=== PATIENT | male | born 1975 | race Caucasian/White ===

== ENCOUNTER 2024-12-04 12:42 | Emergency (ER) | payer OTHER, SELFPAY ==
[2024-12-04] VITALS (17 sets, daily range): BP systolic 128–154; BP diastolic 83–97; PULSE 72–102; RESP 18–20; TEMP 37; O2SAT 95–99
--- NOTE | ~2024-12-04 | CT_ITS ---
EXAMINATION: CT abdomen pelvis wo con DATE: 12/04/2024 13:19 INDICATION: abdominal pain/ low back pain/ diarrhea x3 days TECHNIQUE: Computed tomography (CT) of the abdomen and pelvis was performed without intravenous contr ast. Automated exposure control and iterative reconstruction technique were employed. The dose-length product was 661.31 mGy-cm. COMPARISON: None. FINDINGS: Lower thorax: Unremarkable Liver: Enlarged Biliary/Gallbladder: Gallbladder is normal. No bile duct dilation. Pancreas: No mass or duct dilation. Spleen: Normal. Adrenals:No mass. Kidneys: No suspicious mass, obstructing stone, or hydronephrosis. GI tract: No small or large bowel dilation. Diffuse colonic wall thickening with mild surrounding inf lammatory change, some sparing of the distal sigmoid and rectum. Normal appendix. Mesentery/Peritoneum: No ascites, mass, or free air. Retroperitoneum: No mass. Pelvis: Pelvic organs are within normal limits. Soft Tissues: Soft tissues and body wall unremarkable. Bones: No acute osseous finding. IMPRESSION: Hepatomegaly. Diffuse infectious, inflammatory, or ischemic colitis. Reviewed, dictated and finalized at location K.
--- OUTSIDE RECORDS SUMMARY | 2024-12-04 12:45 | XMS_ITS | Clinical Summary ---
Author Organization [facility] Address [address] [facility], [place] [address] Phone Care Team Providers Care Nursing Home Manager Name Role Phone Aristeo Bonilla APRN, [employer] LO[employer]IVER Primary Care Pro vider Allergies No known active allergies Medications citalopram (CELEXA) 10 MG Tablet Take 10 mg by mouth daily. Active doxycycline hyclate (VIBRAMYCIN) 100 MG Capsule Take 100 mg by mouth 2 times daily. Active midodrine (PROAMATINE) 5 MG Tablet Take 5 mg by mouth 2 times daily. Active Metoprolol Succinate (TOPROL XL PO) Take 50 mg by mouth. Active Family History Medical History Relation Name Comments Hypertension Mother Other-comment Mother depressive dis order Stroke Mother Relation Name Status Comments Mother Social History Tobacco Use Types Packs/Day Years Used Date Smoking Tobacco: Former Smokeless Tobacco: Never Alcohol Use Standard Drinks/Week Comments Yes 0 (1 standard drink = 0.6 oz pur e alcohol) rarely Sex and Gender Information Value Date Recorded Sex Assigned at Not on file Legal Sex Male 7:40 PM CDT Gender Identity Not on file Sexual Orientation Not on file Last Filed Vital Signs Vital Sign Reading Time Taken Comments Blood Pressure 120/86 05/25/2018 10:29 AM CDT Pulse 46 05/25/2018 10:29 AM CDT Temperature 36.3 C (97.3 F) 05/25/2018 10:29 AM CDT Respiratory Rate 16 05/25/2018 10:29 AM CDT Oxygen Saturation 98% 05/25/2018 10:29 AM CDT Inhaled Oxygen Concentration - - Weight 112 kg (247 lb) 05/25/2018 10:29 AM CDT Height 188 cm (6' 2 ) 05/25/2018 10:29 AM CDT Body Mass Index 31.71 05/25/2018 10:29 AM CDT Plan of Treatment Health Maintenance Due Date Last Done Comments Hepatitis C Virus (HCV) Screening 1974 TdaP Immunization 1974 Hepatitis B Immunization (1 of 3 - 19+ 3-dose series) 1993 Colonoscopy 2019 Colorectal Cancer Screening 2019 Cologuard 01/15/2024 Immunochemical Fecal Occult Blood 01/15/2024 Pneumococcal Immunization (5 0+ years) (1 of 1 - PCV) 01/15/2024 Zoster Immunization (1 of 2) 01/15/2024 Influenza Immunization (#1) 2024 SARS-COV-2 Immunization (3 - 2023- season) 2024 12/26/2020, 12/05/2020 Respiratory Syncytial Virus (RSV) Immunization (Adult) (1 - 1-dose 75+ series) 2049 Meningococcal Immunization (ACWY) Aged Out No longer eligible b ased on patient's age to complete this topic Rotavirus Immunization Aged Out No lo nger eligible based on patient's age to complete this topic Insurance [facility] [place] [address] Care Teams Nursing Home Manager Relationship Specialty Start Date End Date Aristeo Bonilla APRN, COMM[employer]CIAL [employer] 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
--- OUTSIDE RECORDS SUMMARY | 2024-12-04 12:45 | XMS_ITS | Referral Summary ---
Author Organization [facility] Address [address] [place] [address] Care Team Providers Care [employer] Consultant Name Role Phone Yessica Rogers MD Unavailable [phone] Varun Alicia DO Unavailable Mitch Liao Primary Care Provider Encounters Date Type Department Care Team Description 11/07/2024 11:00 AM CDT Office Visit [facility] at [address] [place] [phone] Susu Anderson NP Incisional infection (Primary Dx) 10/07/2024 8:15 AM PROTEIN SCIENTIST Office Visit [facility] at [address] [phone] Yessica Rogers MD Elevated LDL cholesterol level (Primary Dx); Syncope and collapse 10/04/2024 9:00 AM PROTEIN SCIENTIST - 10/04/2024 10:35 AM PROTEIN SCIENTIST Surgery [facility]iac [facility]atheter[facility] [address] [place] [phone] Yessica Rogers MD IMPLANTABLE CARDIAC EVENT MONITOR REMOVAL [id number] 10/04/2024 7:40 AM PROTEIN SCIENTIST - 10/04/2024 11:07 AM PROTEIN SCIENTIST Hospital Encounter [facility]iac [facility]atheter[facility] [address] [place] [phone] Yessica Rogers MD Encounter for interrogation of cardiac recorder Discharge Disposition: Discharge to home or self care 09/27/2024 Results Follow-Up [facility] at [address] [phone] Yessica Rogers MD 09/27/2024 Results Follow-Up [facility] at [address] [phone] Yessica Rogers MD 09/27/2024 10:00 AM PROTEIN SCIENTIST Lab [address] [phone] Encounter for interrogation of cardiac recorder 09/27/2024 8:27 AM PROTEIN SCIENTIST - 09/27/2024 11:59 PM PROTEIN SCIENTIST Hospital Encounter [facility]iology [address] [place] [phone] Encounter for interrogation of cardiac recorder Discharge Disposition: Discharge to home or self care 09/27/2024 7:41 AM PROTEIN SCIENTIST - 09/27/2024 11:59 PM PROTEIN SCIENTIST Hospital Encounter [address] [address] Discharge Disposition: Discharge to home or self care 09/27/2024 7:41 AM PROTEIN SCIENTIST - 09/27/2024 11:59 PM PROTEIN SCIENTIST Hospital Encounter [facility] [address] [place] [phone] Coronary artery disease involving tyonek coronary artery of [place] heart without angina pectoris Discharge Disposition: Discharge to home or self care 09/27/2024 7:40 AM PROTEIN SCIENTIST - 09/27/2024 11:59 PM PROTEIN SCIENTIST Hospital Encounter [facility] [address] [place] [phone] Discharge Disposition: Discharge to home or self care 09/27/2024 7:40 AM PROTEIN SCIENTIST - 09/27/2024 11:59 PM PROTEIN SCIENTIST Hospital Encounter [address] [address] Coronary artery disease involving [place] coronary artery of [place] heart without angina pectoris Discharge Disposition: Discharge to home or self care 09/13/2024 9:00 AM PROTEIN SCIENTIST Office Visit [facility] at [address] [place] [phone] Yessica Rogers MD Elevated LDL cholesterol level (Primary Dx); Syncope and collapse; Paroxysmal SVT (supraventricular tachycardia) (CMS/HCC) (HCC); Coronary artery disease involving tyonek coronary artery of ty[place] heart without angina pectoris from Last 3 Months Allergies No known active allergies Medications buPROPion XL (WELLBUTRIN XL) 300 mg 24 hr tablet Take 450 mg by mouth 08/08/19 20 Active busPIRone (BUSPAR) 7.5 mg tabletIndications: Generalized Anxiety Disorder Take 1 tablet (7.5 mg total) by mouth 2 (two) times a day Active LORazepam (ATIVAN) 1 mg tablet Take 1 tablet (1 mg total) by mouth every 6 (six) hours as needed for anxiety Active risperiDONE (RisperDAL) 0.5 mg tablet Take 1 tablet (0.5 mg total) by mouth nightly 12/31/19 23 Active aspirin 81 mg enteric coated tablet Take 1 tablet (81 mg total) by mouth daily 30 tablet 11 01/22/20 23 Active Additional Information Patient not taking.Reported on 09/13/2024 metoprolol XL (TOPROL-XL) 50 mg extended release tablet Take 1 tablet (50 mg total) by mouth daily Active rizatriptan TRUCK DRIVER RUBBISH COLLECTOR (MAXALT-TRUCK DRIVER RUBBISH COLLECTOR) 10 mg disintegrating tabletIndications: Migraine Take 1 tablet (10 mg total) by mouth every 2 (two) hours as needed for migraine May repeat in 2 hours if unresolved. Do not exceed 30 mg in 24 hours. 9 tablet 3 08/07/19 24 Active Additional Information Patient not taking.Reported on 09/13/2024 atorvastatin (LIPITOR) 40 mg tablet Take 1 tablet (40 mg total) by mouth daily 90 tablet 3 09/13/19 25 026 Active traZODone (DESYREL) 50 mg tablet Take 1 tablet (50 mg total) by mouth nightly Active cephalexin (KEFLEX) 500 mg capsule Take 1 capsule (500 mg total) by mouth 3 (three) times a day for 7 days 21 capsule 11/08/19 25 025 Active Problems Problem Noted Date Diagnosed Date Encounter for interrogation of cardiac recorder 09/14/2024 Elevated LDL cholesterol level 02/20/2023 Overview (10/07/2024): LDL of 116 mg/dL on 18 January 2023. LDL of 149 mg/dL on 19 August 2024. He was on Lipitor 20 mg daily in August 2024 but not taking it regularly. Now taking Lipitor 40 mg daily. Assessment & Plan (10/07/2024 8:59 AM PROTEIN SCIENTIST): We discussed LDL cholesterol goal less than 70 mg/dL. Patient agreeable to getting another fasting lipid/liver panel in about a month. I expect his LDL to be much lower at that time. Assessment & Plan (09/13/2024 9:23 AM PROTEIN SCIENTIST): Discussed LDL cholesterol goal of less than 70 mg/dL. He has not been at goal on the last 2 tests that I could see. In fact, the LDL cholesterol worsened from 2022. I will restart Lipitor at 40 mg daily. Another lipid/liver panel in 6-8 weeks. Assessment & Plan (02/26/2023 2:32 PM CDT): We discussed LDL cholesterol goal of less than 70 mg/dL. We discussed adding Zetia or doubling up the Lipitor--he wants to go to maximum dose of Lipitor. Another fasting lipid/liver panel in 6-8 weeks. Coronary artery disease invo lving tyonek coronary artery of [place] heart 01/24/2020 Overview (09/27/2024): Mild by catheterization on 12 January 2014 (RL) with 25% ostial left main stenosis, 25% diffuse proximal RCA stenosis and 25% mid to distal LAD stenosis. Normal Cardiolite on 27 September 2024. LVEF of 63%. Assessment & Plan (09/13/2024 9:21 AM PROTEIN SCIENTIST): We discussed cardiac catheterization result 10 years ago. He does not have any classic angina or shortness of breath lately. We discussed getting a stress test and he is agreeable to a walking nuclear test. Assessment & Plan (02/26/2023 2:33 PM CDT): Having rare episodes of angina with exertion. We discussed cardiac catheterization findings from 9 years ago with currently elevated LDL cholesterol level. A walking stress nuclear would be good to make sure he does not have any ongoing ischemia. Course, his fatigue could also be from obstructive sleep apnea, he will be seeing Dr. Cabrera soon. Assessment & Plan (08/28/2022 3:03 PM PROTEIN SCIENTIST): We discussed cardiac catheterization findings from 8 years ago. Patient denies any chest pain or shortness of breath with exertion. No change in medical regimen here. Assessment & Plan (08/22/2021 3:37 PM PROTEIN SCIENTIST): Patient denies any chest pain or shortness of breath with exertion. No change in medical regimen here. Assessment & Plan (01/24/2020 10:26 AM CDT): Stable with no recent angina. Paroxysmal SVT (supraventricular tachycardia) (C MS/HCC) 01/18/2020 Overview (08/28/2022): Episodes with sudden rate drops noted on loop recorder interrogation. However, patient apparently not symptomatic. Multiple episodes of high ventricular rates noted over the past few years. Symptomatic palpitations in March 2022 was not associated with anything on the loop recorder interrogation. Assessment & Plan (09/13/2024 9:21 AM PROTEIN SCIENTIST): No recent palpitations, dizziness or syncope. loop recorder will be removed soon. Assessment & Plan (08/28/2022 3:03 PM PROTEIN SCIENTIST): Patient has done quite well. We discussed an EP evaluation to see if he could benefit from an ablation. He is agreeable to see Dr. Pulido at [facility] for a new patient visit. No change in Toprol-XL dose at this time. He never filled his ivabradine prescription. Assessment & Plan (08/22/2021 3:38 PM PROTEIN SCIENTIST): Multiple episodes of heart rate to the 180s noted. Already had a negative EP study with Dr. Hayden in January 2018. I will have him see Dr. Swartz now to see if there is anything else we need to do. In the meantime, I will put him back on Toprol XL 50 mg daily and Corlanor 5 mg daily. He was on those medications but could not fill them because of insurance change recently. Assessment & Plan (01/24/2020 10:22 AM CDT): We discussed that loop recorder checked today again showed rate drops and also rapid heart rates in the afternoon/evening. He would not be doing anything strenuous at that time. I discussed the findings with Dr. Hayden over the phone. He again recommended Corlanor at 5 mg p.o. b.i.d.. This was ordered last time but patient never got it started. Will try again today with a co-pay card. Drug has not been sampled for a while now. Occipital neuralgia of left side 09/02/2019 Chronic migraine without aur a without status migrainosus, not intractable 10/12/2018 Obstructive sleep apnea 10/12/2018 Syncope and collapse 08/06/2017 Overview (10/07/2024): Status post [employer] Biomonitor 2 AF on 07 August [address]. [address] Hayden for tilt-table study in 2017 and it was abnormal at that time. Device hit TOMMY in November 2023. Loop recorder was removed on 04 October 2024 (RL). Assessment & Plan (10/07/2024 8:58 AM PROTEIN SCIENTIST): No problems since loop recorder removed. Assessment & Plan (09/13/2024 9:20 AM PROTEIN SCIENTIST): He has not had any syncope for several years. No recent palpitations. Since loop recorder is , he wants to have it removed in the next week or two. He was wondering whether he needs another loop recorder. Probably not as he is not having any symptoms lately. Loop recorder site looks fine Assessment & Plan (02/26/2023 2:34 PM CDT): Had syncopal episode last month and nothing showed up on the loop recorder interrogation. However, 4 days prior to the syncopal episode, he had a 4 second pause while sleeping. Apparently, he snores and he has not had sleep study. Will be seeing the sleep doctor very soon. Assessment & Plan (01/24/2020 10:23 AM CDT): No recent syncope. No palpitations or dizziness. He has not pressed his loop recorder for a while and I advised him to do so if he starts to have symptoms again in the near future. Assessment & Plan (08/06/2017 5:30 PM PROTEIN SCIENTIST): This is a recurrent problem for the patient happening 5th time. Prior workup was negative. Patient had CardioNet monitor for 17 days, did not show any arrhythmias. Dr. lynn is her recommending loop recorder and he spoke to Dr. Drew elizabeth at [facility] for possible EP study. Orthostatic blood pressures are pending. All the workup is still negative, EKG does not show any tachyarrhythmia, Brugada syndrome or WPW syndrome. Telemetry monitoring showing sinus rhythm. Neurology consultation obtained. Recommending EEG and loop recorder. Pain in right hand 08/06/2017 Assessment & Plan (08/06/2017 5:34 PM PROTEIN SCIENTIST): This is secondary to a fall due to syncope. X-ray of right hand shows old fracture at navicular bone. No new fractures or dislocation. Will continue pain medications. Left shoulder pain 08/06/2017 Assessment & Plan (08/06/2017 5:48 PM PROTEIN SCIENTIST): This is due to a fall. X-rays show no fracture or dislocation. Will continue pain medication Orthostatic hypotension 08/06/2017 Assessment & Plan (08/06/2017 5:49 PM PROTEIN SCIENTIST): Continue IV fluid and check orthostatic blood pressures tomorrow. Contusion of left hip Contusion of left shoulder Contusion of right hand Immunizations Immunization Administration Dates Next Due Influenza, Quadrivalent, Spl it, Preservative Free, Intramuscular 08/07/2017 Social History Tobacco Use Types Packs/Day Years Used Date Smoking Tobacco: Former Smokeless Tobacco: Never Tobacco Cessation:Counseling Given: No Alcohol Use Standard Drinks/Week Comments Yes 0 (1 standard drink = 0.6 oz pur e alcohol) twice monthly Social Connection and Isolat ion Panel [NHANES] Answer Date Recorded In a typical week, how many times do you talk on the phone with family, friends, or neighbors? More than three times a week 01/16/2023 How often do you get togethe r with friends or relatives? Never 01/16/2023 How often do you attend chur ch or rastafari services? Never 01/16/2023 Do you belong to any clubs o r organizations such as religion groups, unions, fraternal or athletic groups, or school groups? No 01/16/2023 How often do you attend meet ings of the clubs or organizations you belong to? Never 01/16/2023 Are you , , di vorced, , never , or living with a partner? 01/16/2023 AUDIT-C Answer Date Recorded Q1: How often do you have a drink containing alc ohol? Monthly or less 01/15/2023 Q2: How many drinks containi ng alcohol do you have on a typical day when you are drinking? 1 or 2 01/15/2023 Q3: How often do you have si x or more drinks on one occasion? Never 01/15/2023 Overall Financial Resource Strain (CARDIA) Answe r Date Recorded How hard is it for you to pa y for the very basics like food, housing, medical care, and heating? Not hard at all 01/16/2023 Hunger Vital Sign Answer Date Recorded Within the past 12 months, y ou worried that your food would run out before you got the money to buy more. Never true 01/17/20 23 Within the past 12 months, t he food you bought just didn't last and you didn't have money to get more. Never true 01/16/2023 PRAPARE - Transportation Answer Date Re corded In the past 12 months, has l ack of transportation kept you from medical appointments or from getting medications? No 01/01 In the past 12 months, has l ack of transportation kept you from meetings, work, or from getting things needed for daily living? No 01/16/2023 Housing Stability Vital Sign Answer Esau e Recorded In the last 12 months, was t here a time when you were not able to pay the mortgage or rent on time? No 01/16/2023 In the last 12 months, how many places have you lived? 1 01/16/2023 In the last 12 months, was t here a time when you did not have a steady place to sleep or slept in a correction (including now)? No 01/16/2023 Personal Safety Answer Date Recorded Have you ever been in or are you currently in a harmful physical or emotional relationship or is someone making you feel afraid or unsafe? Denies 10/04/2024 Education Answer Date Recorded What is the highest level of school you have completed or the highest degree you have received? GED or equivalent Sex and Gender Information Value Date Recorded Sex Assigned at Not on file Legal Sex Male 1:47 AM PROTEIN SCIENTIST Gender Identity Male 08/20/2021 9:51 AM PROTEIN SCIENTIST Sexual Orientation Straight 08/20/2021 9: 51 AM PROTEIN SCIENTIST Last Filed Vital Signs Vital Sign Reading Time Taken Comments Blood Pressure 115/79 10/04/2024 11:00 AM PROTEIN SCIENTIST Pulse 55 10/04/2024 11:00 AM PROTEIN SCIENTIST Temperature 36.5 C (97.7 F) 10/04/2024 8:04 AM PROTEIN SCIENTIST Respiratory Rate 12 10/04/2024 11:0 0 AM PROTEIN SCIENTIST Oxygen Saturation 98% 10/04/2024 11: 00 AM PROTEIN SCIENTIST Inhaled Oxygen Concentration - - Weight 114.4 kg (252 lb 1.6 oz) 10/04/2024 8:05 AM PROTEIN SCIENTIST Height 182.9 cm (6') 09/13/2024 9:03 AM PROTEIN SCIENTIST Body Mass Index 34.19 09/13/2024 9:03 AM PROTEIN SCIENTIST Plan of Treatment Not on file Medical Devices Implanted Type Area Certified Flex Endoscope Reprocessor Device Identifier Shelf Expiration Date Model / Serial / Lot Device Cardiac Biomonitor Implantable Sterile Latex Free - [id number] Implanted:Qty: 1 on 08/07/2017 by Yessica Rogers MD at [facility] [employer] 09/02/2017 [id number] / / Procedures Procedure Name Priority Date/Time Associated Diagnosis Comments LOOP RECORDER REMOVAL Routine 10/04/2024 9:57 AM PROTEIN SCIENTIST Encounter for interrogation of cardiac recorder STRESS TEST FOR DUAL READ Schedule Routine, Read Routine (OP Routine) 09/27/2024 10:26 AM PROTEIN SCIENTIST Coronary artery disease involving [place] coronary artery of [place] heart without angina pectoris NM MPI SPECT (REST AND/OR STRESS) MULTIPLE STUDIES Schedule Routine, Read Routine (OP Routine) 09/27/2024 10:26 AM PROTEIN SCIENTIST Coronary artery disease involving [place] coronary artery of [place] heart without angina pectoris EGFR Routine 09/27/2024 9:55 AM PROTEIN SCIENTIST Encounter for interrogation of cardiac recorder DIFFERENTIAL AUTO Routine 09/27/2024 9:5 5 AM PROTEIN SCIENTIST Encounter for interrogation of cardiac recorder PROTIME-INR Routine 09/27/2024 9:55 AM PROTEIN SCIENTIST Encounter for interrogation of cardiac recorder BASIC METABOLIC PANEL Routine 09/27/2024 9:55 AM PROTEIN SCIENTIST Encounter for interrogation of cardiac recorder CBC WITH AUTO DIFFERENTIAL Routine 09/27/2024 9:55 AM PROTEIN SCIENTIST Encounter for interrogation of cardiac recorder ECG 12-LEAD Routine 09/27/2024 8:48 AM PROTEIN SCIENTIST Encounter for interrogation of cardiac recorder from Last 3 Months Results * LOOP RECORDER REMOVAL (10/04/2024 9:57 AM PROTEIN SCIENTIST) Anatomical Region Laterality Modality X-Ray Angiograph y 10/04/2024 Narrative 10/07/2024 10:40 AM PROTEIN SCIENTIST [employer] Job ID: [id number] [employer] Document ID: [id number] Dictated date/time: [id number] NAME OF CARDIAC PROCEDURE Removal of loop recorder. PROCEDURE The patient was brought down to the lab support tech where a time-out was done just prior to the procedure. The patient wanted some sedation and Alexsander RN gave 4 mg IV Versed and 200 mcg of IV fentanyl in small increments. Total procedure time was 15 minutes. The chest was prepped and draped in the usual fashion. The butt end of the device was right underneath the old scar. Thus, I infiltrated the old scar. Using a knife blade, I went inside through the subcutaneous tissue. The device was then removed in its entirety using a hemostat. Not much bleeding. Subcutaneous tissues were approximated with 3 stitches of 2-0 Vicryl. The skin was approximated nicely with Steri-Strips. This was then followed by a dry sterile dressing. The patient will go home today when he is fully awake. No driving today. Wound check in my office next week. Job ID/Internal Job ID: [id number] us Yessica Rogers MD CV ELECTROPHYSIOLOGY PROCS Fi nal Result * NM MPI SPECT (Rest and/or Stress) Multiple Studies (09/27/2024 10:26 AM PROTEIN SCIENTIST) Anatomical Region Laterality Modality Body N/A Nuclear Medicine 09/27/2024 7:47 AM PROTEIN SCIENTIST Narrative 09/27/2024 11:47 AM PROTEIN SCIENTIST [address] [id number] MPI Report Patient Name: JOSE MALAVE Nilesh : 1975 Study Date: 09/27/2024 7:47:03 AM Gender: M Tech: Ref Provider: YESSICA ROGERS Height(Cm): BSA: Weight(Kg): Order Provider: YESSICA ROGERS PROCEDURES: Exercise SPECT Report.: Myocardial Perfusion Imaging at rest and post exercise. INDICATIONS: I25.10 Atherosclerotic heart disease of [place] coronary artery without angina pectoris. FINDINGS: Procedure Data: Sestamibi injected at rest was 10.4 millicuries Sestamibi injected at peak exercise was 31.8 millicuries Peak HR: 157 bpm Predicted Maximal HR 170 bpm Percent Max Predicted HR Achieved: 92.35 % Perfusion: Normal perfusion imaging. LV Function: Left ventricular ejection fraction is 63 %. CONCLUSIONS: 1. Myocardial Perfusion: Normal rest and stress images. 2. Left ventricle: Normal size and systolic function (visually confirmed EF >50%). Electronically Signed By: Shelby Oconnell MD 09/27/2024 11:00:11 AM PROTEIN SCIENTIST Procedure Note Shelby Oconnell MD - 09/27/[address] [address] MPI Report Patient Name: JOSE MALAVE D : 1975 Study Date: 09/27/2024 7:47:03 AM Gender: M Tech: Ref Provider: YESSICA ROGERS Height(Cm): BSA: Weight(Kg): Order Provider: YESSICA ROGERS PROCEDURES: Exercise SPECT Report.: Myocardial Perfusion Imaging at rest and post exercise. INDICATIONS: I25.10 Atherosclerotic heart disease of [place] coronary artery withoutangina pectoris. FINDINGS: Procedure Data: Sestamibi injected at rest was 10.4 millicuries Sestamibi injected at peak exercise was 31.8 millicuries Peak HR: 157 bpm Predicted Maximal HR 170 bpm Percent Max Predicted HR Achieved: 92.35 % Perfusion: Normal perfusion imaging. LV Function: Left ventricular ejection fraction is 63 %. CONCLUSIONS: 1. Myocardial Perfusion: Normal rest and stress images. 2. Left ventricle: Normal size and systolic function (visually confirmedEF >50%). Electronically Signed By: Shelby Oconnell MD 09/27/2024 11:00:11 AM PROTEIN SCIENTIST us Yessica Rogers MD IM NM PROCEDURES Final Resul t * Stress Test for Myocardial Perfusion (09/27/2024 10:26 AM PROTEIN SCIENTIST) Anatomical Region Laterality Modality Nuclear Medicine 09/27/2024 8:30 AM PROTEIN SCIENTIST Narrative 09/27/2024 1:30 PM PROTEIN SCIENTIST [address] [address] MPI ECG Report Patient Name: JOSE MALAVE D : 1975 Study Date: 09/27/2024 8:30:00 AM Gender: M Tech: jose Suárez Provider: YESSICA ROGERS Height(Cm): 183 BSA: 3.57 Weight(Kg): 251 Heart Rate: 145 Order Provider: YESSICA ROGERS PROCEDURES: Exercise SPECT Report.: Myocardial Perfusion Imaging at rest and post exercise. INDICATIONS: I25.10 Atherosclerotic heart disease of [place] coronary artery without angina pectoris. FINDINGS: Procedure Data: Exercise Time: 10:00 Resting HR 79 bpm Peak HR: 157 bpm Predicted Maximal HR 170 bpm Target HR: 145 bpm Percent Max Predicted HR Achieved: 92 % METS achieved: 10.3 Rate-Pressure Product: 34728 BPM*mmHg Medications: Medications None, aspirin, bumex, capoten, cardura, carvedilol (Coreg), clonidine, coumadin, cozaar, digoxin, diltiazem, diovan, hydrochlorothiazide, hytrin, isordil, lasix, lipitor, metoprolol, multaq, niacin, norvasc, potassium, pravachol, procardia, propanolol, rythmol, simvastatin, toprol, trandate, vasotec, verapamil, zaroxolyn, zocor and free text. Performed By: Supervising Physician: The Supervising Physician is raad ochoa. Reason for Termination: Fatigue. Dyspnea. THR achieved. Patient request. Hypertensive response. Resting ECG: Normal sinus rhythm. Post ECG: No diagnostic ST changes. Arrhythmia: No arrhythmias seen. Target HR Achieved: Target heart rate was achieved. CONCLUSIONS: 1. Test negative for exercise-induced ischemia electrocardiogram criteria at maximum workload. The. 2. No chest discomfort. 3. Normal blood pressure response. 4. Excellent aerobic exercise capacity with more than 12 Mets of exercise activity. 5. SPECT report to follow and should be correlated with this study. Electronically Signed By: Shelby Oconnell MD 09/27/2024 12:54:58 PM PROTEIN SCIENTIST Procedure Note Shelby Oconnell MD - 09/27/[address] [address] MPI ECG Report Patient Name: JOSE MALAVE D : 1975 Study Date: 09/27/2024 8:30:00 AM Gender: M Tech: jose Suárez Provider: YESSICA ROGERS Height(Cm): 183 BSA: 3.57 Weight(Kg): 251 Heart Rate: 145 Order Provider: YESSICA ROGERS PROCEDURES: Exercise SPECT Report.: Myocardial Perfusion Imaging at rest and post exercise. INDICATIONS: I25.10 Atherosclerotic heart disease of [place] coronary artery withoutangina pectoris. FINDINGS: Procedure Data: Exercise Time: 10:00 Resting HR 79 bpm Peak HR: 157 bpm Predicted Maximal HR 170 bpm Target HR: 145 bpm Percent Max Predicted HR Achieved: 92 % METS achieved: 10.3 Rate-Pressure Product: 56929 BPM*mmHg Medications: Medications None, aspirin, bumex, capoten, cardura, carvedilol (Coreg),clonidine, coumadin, cozaar, digoxin, diltiazem, diovan, hydrochlorothiazide, hytrin,isordil, lasix, lipitor, metoprolol, multaq, niacin, norvasc, potassium, pravachol,procardia, propanolol, rythmol, simvastatin, toprol, trandate, vasotec, verapamil,zaroxolyn, zocor and free text. Performed By: Supervising Physician: The Supervising Physician is raad ochoa. Reason for Termination: Fatigue. Dyspnea. THR achieved. Patient request. Hypertensive response. Resting ECG: Normal sinus rhythm. Post ECG: No diagnostic ST changes. Arrhythmia: No arrhythmias seen. Target HR Achieved: Target heart rate was achieved. CONCLUSIONS: 1. Test negative for exercise-induced ischemia electrocardiogram criteriaat maximum workload. The. 2. No chest discomfort. 3. Normal blood pressure response. 4. Excellent aerobic exercise capacity with more than 12 Mets of exerciseactivity. 5. SPECT report to follow and should be correlated with this study. Electronically Signed By: Shelby Oconnell MD 09/27/2024 12:54:58 PM PROTEIN SCIENTIST us Yessica Rogers MD CV STRESS PROCEDURES Final Re sult * eGFR (09/27/2024 9:55 AM PROTEIN SCIENTIST) eGFR 80 >=60 mL/min/1. 73 m2 Comment: Interpretive Data Reference Interval Normal >/= 90 mL/min/1.73m2 Mildly decreased* 60 - 89 mL/min/1.73m2 Mildly to moderately decreased 45 - 59 mL/min/1.73m2 Moderately to severely decreased 30 - 44 mL/min/1.73m2 Severely decreased 15 - 29 mL/min/1.73m2 Kidney Failure < 15 mL/min/1.73m2 *Relative to young adult level Estimated glomerular filtration rate is determined by the 2020 CKD-EPI equation recommended by the National Kidney Foundation (A Unifying Approach to GFR Estimation: Recommendations of the NKF-ASK Task Force on Reassessing the Inclusion of Race in Diagnosing Kidney Disease, JASN 2020). The CKD-EPI equation should not be used for patients with unstable renal function and has not been validated in children and those over 70. Current interpretive data was last reviewed 2021. Blood 09/27/2024 9:55 AM PROTEIN SCIENTIST 09/27/2024 10:44 AM PROTEIN SCIENTIST us Yessica Rogers MD LAB BLOOD ORDERABLES Final Re sult [facility] ([place]) [address] [facility] [place] [address] * Differential, auto (09/27/2024 9:55 AM PROTEIN SCIENTIST) Neutrophil abs 3.3 1.5 - 6.5 K/cumm Imm gran abs 0.0 0.0 - 0.1 K/cumm [facility] ([place]) Lymphocyte abs 3.0 0.8 - 3.3 K/cumm [facility] ([place]) Monocyte abs 0.4 0.2 - 0.8 K/cumm [facility] ([place]) Eosinophil abs 0.2 0.0 - 0.5 K/cumm [facility] ([place]) Basophil abs 0.0 0.0 - 0.1 K/cumm [facility] ([place]) Neutrophil pct 47.6 % [facility] ([place]) Comment: Interpretive Data Percent cell count reference ranges are not reported, since discordance with absolute values may lead to misinterpretation of CBC data. Current Interpretive Data was last revised on 2017. Imm gran pct 0.1 % [facility] ([place]) Comment: Interpretive Data Percent cell count reference ranges are not reported, since discordance with absolute values may lead to misinterpretation of CBC data. Current Interpretive Data was last revised on 2017. Lymphocyte pct 42.6 % [facility] ([place]) Comment: Interpretive Data Percent cell count reference ranges are not reported, since discordance with absolute values may lead to misinterpretation of CBC data. Current Interpretive Data was last revised on 2017. Monocyte pct 6.3 % [facility] ([place]) Comment: Interpretive Data Percent cell count reference ranges are not reported, since discordance with absolute values may lead to misinterpretation of CBC data. Current Interpretive Data was last revised on 2017. Eosinophil pct 3.0 % [facility] ([place]) Comment: Interpretive Data Percent cell count reference ranges are not reported, since discordance with absolute values may lead to misinterpretation of CBC data. Current Interpretive Data was last revised on 2017. Basophil pct 0.4 % [facility] ([place]) Comment: Interpretive Data Percent cell count reference ranges are not reported, since discordance with absolute values may lead to misinterpretation of CBC data. Current Interpretive Data was last revised on 2017. Blood 09/27/2024 9:55 AM PROTEIN SCIENTIST 09/27/2024 10:44 AM PROTEIN SCIENTIST us Yessica Rogers MD LAB BLOOD ORDERABLES Final Re sult [facility] ([place]) [address] [facility] Department [place] [address] * CBC with auto differential (09/27/2024 9:55 AM PROTEIN SCIENTIST) WBC 6.9 3.8 - 9.9 K/cumm Hgb 15.5 13.0 - 17.5 g/dL [facility] ([place]) Hct 46.0 38.9 - 50.3 % [facility] ([place]) Plt 222 150 - 400 K/cumm [facility] ([place]) MPV 10.5 9.1 - 12.3 fL [facility] ([place]) RBC 5.18 4.30 - 5.80 M/cumm [facility] ([place]) MCV 88.8 81.3 - 96.4 fL [facility] ([place]) MCH 29.9 27.1 - 33.3 pg [facility] ([place]) MCHC 33.7 32.3 - 35.7 g/dL [facility] ([place]) RDW CV 12.1 11.1 - 14.9 % [facility] ([place]) RDW SD 39.7 35.7 - 48.1 fL [facility] ([place]) NRBC abs 0.00 0.00 - 0.01 K/cumm [facility] ([place]) Blood 09/27/2024 9:55 AM PROTEIN SCIENTIST 09/27/2024 10:44 AM PROTEIN SCIENTIST Yessica Rogers MD LAB BLOOD ORDERABLES Final Re sult Performing Organization Address [place] de Phone Number [facility] ([place]) [address] [facility] [place] [address] * Protime-INR (09/27/2024 9:55 AM PROTEIN SCIENTIST) PT 11.7 9.7 - 13.0 sec [facility] ([place]) INR 1.08 0.90 - 1.20 [facility] ([place]) Comment: Interpretive data Oral anticoagulant therapeutic ranges: Venous thromboembolism prophylaxis or treatment: 2.0-3.0 CARDIOLOGY Standard range: 2.0-3.0 High-intensity range: 2.5-3.5 Refer to indication-specific guidelines for appropriate target ranges for prosthetic heart valve replacement. Current interpretive data was last revised on 2019. Blood 09/27/2024 9:55 AM PROTEIN SCIENTIST 09/27/2024 10:44 AM PROTEIN SCIENTIST Yessica Rogers MD LAB BLOOD ORDERABLES Final Re sult Performing Organization Address [facility] Co de Phone Number [facility] ([place]) 1 [facility] [place] [address] * Basic metabolic panel (09/27/2024 9:55 AM PROTEIN SCIENTIST) Sodium 143 135 - 145 mmol/L Potassium, pl 4.1 3.3 - 4.9 mmol/L [facility] ([place]) Chloride 107 97 - 110 mmol/L [facility] ([place] CO2 27 22 - 32 mmol/L [facility] ([place]) Anion gap 9 2 - 15 mmol/L [facility] ([place]) BUN 10 6 - 25 mg/dL [facility] ([place]) Creatinine 1.12 0.80 - 1.30 mg/dL [facility] ([place]) Glucose 118 70 - 199 mg/dL [facility] ([place]) Comment: Interpretive Data Fasting glucose >/= 126 mg/dl is diagnostic for diabetes. Fasting is defined as no caloric intake for at least 8 hours. Fasting glucose between 100 mg/dl to 125 mg/dl is diagnostic of prediabetes. In a patient with classic symptoms of hyperglycemia or hyperglycemic crisis, a random glucose >/= 200 mg/dl is diagnostic for diabetes. In the absence of unequivocal hyperglycemia, results should be confirmed by repeat testing. The classification and Diagnosis of Diabetes Diabetes Care 2021; 46: S19-S40. Current interpretive data was last revised 2022. Calcium 9.3 8.5 - 10.3 mg/dL [facility] ([place]) Blood 09/27/2024 9:55 AM PROTEIN SCIENTIST 09/27/2024 10:44 AM PROTEIN SCIENTIST us Yessica Rogers MD LAB BLOOD ORDERABLES Final Re sult Performing Organization Address [facility] Co de Phone Number [facility] ([place]) [address] [facility] [place] [address] * ECG 12 lead (09/27/2024 8:48 AM PROTEIN SCIENTIST) 09/27/2024 8:52 AM PROTEIN SCIENTIST Narrative [facility] - 09/27/2024 9:30 AM PROTEIN SCIENTIST Vent Rate: 57 bpm RR Interval: 1045 msec [place] Interval: 155 msec QRS Duration: 101 msec QT Interval: 408 msec QTC Interval: 402 msec P-R-T Eleva: 72 - 27 - 52 degrees IMPRESSION: SINUS BRADYCARDIA BORDERLINE ECG NO CHANGE FROM PREVIOUS TRACING NOTED Electronically Signed By: Chidi Sethi MD us Yessica Rogers MD ECG ORDERABLES Final Result Performing Organization Address [place]/[facility] Co de Phone Number [facility] from Last 3 Months Insurance [facility] Advance Directives For more information, please contact: [phone] * Full Code (Latest Code Status on File) Date Activated Date Inactivated Comments 10/04/2024 9:50 AM 10/04/2024 3:13 PM * Full Code Date Activated Date Inactivated Comments 01/15/2023 11:45 AM 01/20/2023 3:17 PM * Full Code Date Activated Date Inactivated Comments 08/25/2017 1:48 AM 08/25/2017 8:43 PM * Full Code Date Activated Date Inactivated Comments 08/06/2017 2:25 AM 08/07/2017 9:11 PM Care Teams [employer] Consultant Relationship Specialty Start Date End Date Mitch Liao PA [address] [place] [id number] PCP - General Physician Audio Visual Design Engineer 02/26/23 Yessica Rogers MD Registered Nurse Cardiovascular Disease 08/07/17 Varun Alicia DO Consulting Physician Cardiology 08/07/17
--- OUTSIDE RECORDS SUMMARY | 2024-12-04 12:45 | XMS_ITS | CONTINUITY OF CARE DOCUMENT ---
Author Name demianbuck demianbuck Address Unknown Organization [facility] Address [address] [address] [place] [address] Phone [phone] Care Team Providers Care Digital Media Representative Name Role Phone Sheridan BRIGHT, Rula Unavailable YAMILETH BRIGHT, YESSICA Mays Unavailable IVIS BRIGHT, REGLA Esteban Unavailable [phone] PROBLEMS Condition Status Date Provider Notes Syncope active Monie Santos RN Biotronik ILR active Varun Alicia DO Dizziness active Varun Alicia DO Asthma active Varun Alicia DO ENCOUNTERS Date Type Provider Location Encounter Diag nosis - In-person encounter Office Visit Varun Alicia DO [facility] Office - In-person encounter Office Visit Varun Alicia DO [facility] Office Biotronik ILRDizzinessAsthsd VITAL SIGNS Date Observation Value Provider Body Mass Index (Ratio) 32.22 kg/m2 Ayo Alicia DO blood pressure, cuff size regular Rh onsravan Meng blood pressure, diastolic 72 mm[Hg] Rh onda Yusra blood pressure, systolic 110 mm[Hg] Rho helena Meng oxygen saturation, oximetry 99 % Marion Meng respiratory rate E&M 18 /min Marion Meng pulse rate 96 /min Marion Meng weight E&M 251 [lb_av] Marion Meng height E&M 74 [in_i] Marion Meng Body Mass Index (Ratio) 32.74 kg/m2 Wing Lo blood pressure, diastolic 84 mm[Hg] Anthony Murrell blood pressure, systolic 132 mm[Hg] Corbin Zuluaga oxygen saturation, oximetry 98 % Aleisha Zuluaga respiratory rate E&M 16 /min Aleisha spaulding pulse rate 60 /min Aleisha Zuluaga blood pressure, resting No Aleisha Zuluaga height E&M 74 [in_i] Aleisha Zuluaga weight E&M 255 [lb_av] Aleisha Zuluaga ALLERGIES No Known Drug Allergies RESULTS Date Observation Value Provider Reference Range Interpretation Location 7 prothrombin time (patient) 10.5 s [facility] 9.1-12.0 7 international normalized ratio (INR) 1.0 [facility] 0.8-1.2 7 calcium, serum 9.5 mg/dL [facility] 8.7-10.2 7 carbon dioxide, venous blood 25 mmol/L [facility] 18-29 7 chloride, serum 103 mmol/L [facility] 96-106 7 potassium, serum 4.4 mmol/L [facility] 3.5-5.2 7 sodium, serum 143 mmol/L [facility] [phone]/04/2 7 urea nitrogen/creatinin e ratio, serum 12 [facility] 9-20 7 eGFR if 100 mL/min/{1. 73_m2} [facility] >59 7 eGFR if not 87 mL/min/{1. 73_m2} [facility] >59 7 creatinine, serum 1.05 mg/dL [facility] 0.76-1.27 7 urea nitrogen, blood 13 mg/dL [facility] 6-24 7 blood glucose, random 96 mg/dL [facility] 65-99 7 basophil count, absolute 0.0 x10E3/uL [facility] 0.0-0.2 7 Eosinophil Absolute Count 0.2 X10E3/UL [facility] 0.0-0.4 7 monocyte count, blood, automated 0.7 X10E3/UL [facility] 0.1-0.9 7 lymphocyte count, blood, automated 3.6 X10E3/UL [facility] 0.7-3.1 High 7 Absolute Neutrophils 2.9 X10E3/UL [facility] 1.4-7.0 7 basophils as percent of blood leukocytes 0 % [facility] Not Estab. 7 eosinophils as percent of blood leukocytes 3 % [facility] Not Estab. 7 monocytes as percent of blood leukocytes 9 % [facility] Not Estab. 7 lymphocytes as percent of blood leukocytes 48 % [facility] Not Estab. 7 neutrophils as percent of blood leukocytes 40 % [facility] Not Estab. 7 platelet count 213 X10E3/UL [facility] [phone]/04/2 7 red blood cell distribution width 13.6 % [facility] 12.3-15.4 7 mean corpuscular hemoglobin concentration, RBC 34.2 G/DL [facility] 31.5-35.7 7 mean corpuscular hemoglobin, RBC 30.3 pg [facility] 26.6-33.0 7 mean corpuscular volume, RBC 89 fL [facility] 79-97 7 hematocrit, blood 44.5 % [facility] 37.5-51.0 7 hemoglobin, blood 15.2 g/dL [facility] 13.0-17.7 7 erythrocyte (RBC) count 5.01 X10E6/UL [facility] 4.14-5.80 7 leukocyte count, blood 7.4 X10E3/UL [facility] 3.4-10.8 HISTORY OF MEDICATION USE Medication Status Instructions Dates Provider Indications Com ments MIDODRINE HCL 5 MG ORAL TABLET active one tablet three times daily. 3 Varun Alicia DO #90, 30 days supply, Prescribed by YAMILETH, Filled 11/16/2017 METOPROLOL SUCCINATE ER 50 MG ORAL TABLET EXTENDED RELEASE 24 HOUR active one tab. once daily. 7 Aleisha Zuluaga #30, 30 days supply, Prescribed by YAMILETH, Filled 11/17/2017 SOCIAL HISTORY Date Observation Value Provider social history E&M S moking History: Oscar workman is a former smoker. Varun Alicia DO social history reviewed E&M revi ewed - no changes required Varun Alicia DO number of grandchildren Varun Alicia D O Varun Alicia DO smoking status Former smoker Marion Meng social history reviewed E&M revi ewed - no changes required Varun Alicia DO social history E&M Smoking Histo ry: Oscar workman is a former smoker. Varun Alicia DO number of years as a smoker 15 a Aleisha Zuluaga smoking history, tot al pack/day 1 Aleisha Zuluaga cigarette use yes Aleisha Zuluaga smoking status Former smoker Aleisha Zuluaga FAMILY HISTORY Family Member Condition Mother Family History of Co ngestive Heart Failure: Mother Family History of CV A or Stroke: Mother Family History of Ao rtic Aneurysm: INSURANCE PROVIDERS Payer name Policy type / Coverage type [place] red democrat ID [facility] Commercial insurance co [facility] [id number] ADVANCE DIRECTIVES Name Date DISCUSSED - NO DECISION MADE TREATMENT PLAN Date Name Performer Electrophysiology:Un clear etiology. Most likely is vasovagal syncope. A bnormal tilt table with syncope following ntg 09/2017. S /P ILR monitor with multiple recordings of tachycardia, HR 150-180's. I suspect this is sinus tachycardia and I do not see conclusive evidence of SVT. For the most part, he is unaware of palpitations or tachycardia and these do not appear to correlate with his symptoms. U nderwent EPS 01/2018 with no inducible SVT or VT. He denies any recurrence of dizziness, near syncope, or syncope. Varun Alicia DO Electrophysiology:Un clear etiology. Most likely is vasovagal syncope. A bnormal tilt table with syncope following ntg 09/2017. S /P ILR monitor with multiple recordings of tachycardia, HR 150-180's. I suspect this is sinus tachycardia and I do not see conclusive evidence of SVT. For the most part, he is unaware of palpitations or tachycardia and these do not appear to correlate with his symptoms. Discussed possible EP study with ablation. I reprogrammed his ILR for detections only above 180 bpm's and therefore he will have to use the trigger to record symptomatic episodes to see if we can correlate symptoms with arrhythmia. If he does decide to prceed with ablation, he will call us. He will need to stop Metoprolol 5 days prior to procedure. Varun Alicia DO Date Name PROTHROMBIN TIME WIT H INR CBC (INCLUDES DIFF/P LT) BASIC METABOLIC PANE L W/EGFR HISTORY OF PROCEDURES Procedure Date Procedure Name Provider Procedure Notes S tatus EKG Varun Alicia DO comple laura EKG Varun Alicia DO comple laura
--- OUTSIDE RECORDS SUMMARY | 2024-12-04 12:45 | XMS_ITS | Clinical Summary ---
Author Organization [facility] Address [address] [place] [id number] Care Team Providers Care Elevators Inspector Name Role Phone Master Marcus MD Primary Care Provider [phone] Allergies No known active allergies Medications metoprolol tartrate 25 MG tablet Take 50 mg by mouth daily. Active citalopram 10 MG tablet Take 10 mg by mouth daily. Active midodrine 5 MG tablet Take 5 mg by mouth 3 (three) times daily. 01/26/2020 Active HYDROcodone-mario taminophen (NORCO) 5-325 MG tabletIndicatio ns:Acute Pain < 7 Day Supply Take 1-2 tablets by mouth every 6 (six) hours as needed. Indications: Acute Pain < 7 Day Supply 20 tablet 12/30/2022 Active Active Problems No known active problems Encounters Date Type Department Care Team Description 09/14/2024 6:39 AM CREW CAR DRIVER - 09/14/2024 11:59 PM [facility] Hospital Encounter [address] [place] [address] Master Marcus MD Discharge Disposition: Home or Self Care (Routine Discharge) 09/14/2024 Travel from Last 3 Months Social History Tobacco Use Types Packs/Day Years Used Date Smoking Tobacco: Never Smokeless Tobacco: Never Alcohol Use Standard Drinks/Week Comments Not Currently 0 (1 standard drink = 0.6 oz pur e alcohol) Sex and Gender Information Value Date Recorded Sex Assigned at Male 08/19/2024 8:35 AM CREW CAR DRIVER Legal Sex Male 7:02 PM CDT Gender Identity Not on file Sexual Orientation Not on file Last Filed Vital Signs Vital Sign Reading Time Taken Comments Blood Pressure 149/106 12/30/2022 12:43 AM CDT Pulse 99 12/30/2022 12:43 AM CDT Temperature 37.7 C (99.8 F) 12/30/2022 12:43 AM CDT Respiratory Rate 16 12/30/2022 12:43 AM CDT Oxygen Saturation 97% 12/30/2022 12:43 AM CDT Inhaled Oxygen Concentration - - Weight 117.9 kg (260 lb) 12/30/2022 12:43 AM CDT Height 185.4 cm (6' 1 ) 12/30/2022 12:43 AM CDT Body Mass Index 34.3 12/30/2022 12:43 AM CDT Plan of Treatment Health Maintenance Due Date Last Done Comments Colorectal Cancer Screening Colonoscopy (10 Years) 1974 Annual Physical 1977 Hepatitis C 01/15/1992 DTaP, Tdap and Td Vaccines ( 1 - Tdap) 1993 Hepatitis B Vaccines (1 of 3 - 19+ 3-dose series) 1993 Pneumococcal Vaccine: 50+ Ye ars (1 of 1 - PCV) 01/15/2024 Zoster Vaccines (1 of 2) 01/15/2024 COVID-19 Vaccine (1 - 2023-2 5 season) 2024 Meningococcal B Vaccine Aged Out No l onger eligible based on patient's age to complete this topic Meningococcal Vaccine Aged Out No jeet elizabeth eligible based on patient's age to complete this topic RSV Immunizations Under 20 Months Aged Out No longer eligible based on patient's age to complete this topic Procedures Procedure Name Priority Date/Time Associated Diagnosis Comments CT FACIAL BONES WO CON Routine 09/14/2024 6:52 AM CREW CAR DRIVER Lesion of mandible from Last 3 Months Results * CT FACIAL BONES WO CON (09/14/2024 6:52 AM CREW CAR DRIVER) Anatomical Region Laterality Modality Facial Computed Tomogra phy 09/14/2024 8:06 AM CREW CAR DRIVER Impressions 09/15/2024 3:40 PM CREW CAR DRIVER IMPRESSION: 1. No right mandibular osseous lesion or adjacent soft tissue abnormality to correlate with partially imaged STIR hyperintensity on recent cervical spine MRI. Dictated By: Sanya Elizondo MD on 09/14/2024 8:06 AM The attending radiologist has reviewed the image(s) and agrees with the content of this report. Ordered By: MASTER MARCUS Interpreted By: Sanya Elizondo MD, 09/14/2024 8:06 AM Narrative 09/15/2024 3:40 PM CREW CAR DRIVER [place] [id number] [place] [address] EXAMINATION: CT FACIAL BONES WO CON DATE: 09/14/2024 6:52 AM HISTORY: LESION OF MANDIBLE COMPARISON: Cervical MRI 08/25/2024 CT cervical spine 09/16/2021 TECHNIQUE: Computed tomography of the facial bones was performed without intravenous contrast according to routine protocol without immediate complication. A dose lowering technique was used for this procedure, which may include, but is not limited to, dose reduction technique, automated exposure control, and/or the use of iterative reconstruction, in accordance with ALARA (As Low As Reasonably Achievable)/Image Gently principle. FINDINGS: No definite osseous abnormality identified in the right mandible or within the surrounding soft tissues to correlate with partially imaged STIR hyperintensity on recent cervical spine MRI. Old mandibular dental extractions are evident with associated formation/deposition within the extraction sockets, more so on the right. No acute maxillofacial fractures identified. Mild mucosal thickening noted in the left maxillary sinus. Maxillary infundibula are patent. Incidentally noted accessory ostium along the medial left maxillary sinus wall. Anterior ethmoid air cells, frontal sinus drainage pathways, and frontal sinuses are clear. Posterior ethmoid air cells, sphenoid sinus ostia and sphenoethmoidal recesses, and sphenoid sinuses are clear. Sphenoid sinus septum inserts on the right posterior sphenoid sinus wall. Leftward nasal septal deviation and septal spur. Mucosal hypertrophy noted along the inferior more so than middle turbinates. Anterior cranial fossa floor and cribriform plate are intact. Orbital snyder are intact. Supraorbital ethmoid air cells overlie the anterior ethmoidal artery notches bilaterally. Visualized oral cavity, nasopharynx, and oropharynx are grossly unremarkable, considering constraints of unenhanced technique. No bulky cervical lymphadenopathy identified. Partially imaged portions of the intracranial compartment reveal no acute findings. Mastoid air cells and middle ear cavities are clear. Partially imaged degenerative changes in the cervical spine. Procedure Note Dmitry Latham MD - 09/15/2024 [place] [id number] [place] [address] EXAMINATION: CT FACIAL BONES WO CON DATE: 09/14/2024 6:52 AM HISTORY: LESION OF MANDIBLE COMPARISON: Cervical MRI 08/25/2024 CT cervical spine 09/16/2021 TECHNIQUE: Computed tomography of the facial bones was performed withoutintravenous contrast according to routine protocol without immediatecomplication. A dose lowering technique was used for this procedure,which may include, but is not limited to, dose reduction technique,automated exposure control, and/or the use of iterative reconstruction, inaccordance with ALARA (As Low As Reasonably Achievable)/Image Gentlyprinciple. FINDINGS: No definite osseous abnormality identified in the right mandible or withinthe surrounding soft tissues to correlate with partially imaged STIRhyperintensity on recent cervical spine MRI. Old mandibular dentalextractions are evident with associated formation/deposition within theextraction sockets, more so on the right. No acute maxillofacial fracturesidentified. Mild mucosal thickening noted in the left maxillary sinus. Maxillaryinfundibula are patent. Incidentally noted accessory ostium along themedial left maxillary sinus wall. Anterior ethmoid air cells, frontalsinus drainage pathways, and frontal sinuses are clear. Posterior ethmoid air cells, sphenoid sinus ostia and sphenoethmoidalrecesses, and sphenoid sinuses are clear. Sphenoid sinus septum inserts onthe right posterior sphenoid sinus wall. Leftward nasal septal deviation and septal spur. Mucosal hypertrophy notedalong the inferior more so than middle turbinates. Anterior cranial fossafloor and cribriform plate are intact. Orbital snyder are intact.Supraorbital ethmoid air cells overlie the anterior ethmoidal arterynotches bilaterally. Visualized oral cavity, nasopharynx, and oropharynx are grosslyunremarkable, considering constraints of unenhanced technique. No bulkycervical lymphadenopathy identified. Partially imaged portions of the intracranial compartment reveal no acutefindings. Mastoid air cells and middle ear cavities are clear. Partially imaged degenerative changes in the cervical spine. IMPRESSION: 1. No right mandibular osseous lesion or adjacent soft tissue abnormalityto correlate with partially imaged STIR hyperintensity on recent cervicalspine MRI. Dictated By: Sanya Elizondo MD on 09/14/2024 8:06 AM The attending radiologist has reviewed the image(s) and agrees with thecontent of this report. Ordered By: MASTER MARCUS Interpreted By: Sanya Elizondo MD, 09/14/2024 8:06 AM us Master Marcus MD CT Final Resul t from Last 3 Months Insurance R Care Teams Elevators Inspector Relationship Specialty Start Date End Date Master Marcus MD [address] [place] [id number] PCP - General FAMILY PRACTICE 07/31/21
--- OUTSIDE RECORDS SUMMARY | 2024-12-04 12:45 | XMS_ITS | Clinical Summary ---
Author Organization [facility] Address [address] [place] [address] Care Team Providers Care Electric Organ Assembler And Checker Name Role Phone Unavailable Primary Care Provider Unavailabl e Source Comments [facility],non-owned Affiliates and Associated Physician Practices is amultiple site organization consisting of ambulatory clinics and hospital sitesin [place], [place], [place] and [place]. This disclosure is being madepursuant to the Care Everywhere program and may not contain all informatio navailable regarding this patient. Last updated 18.[facility] Allergies No known active allergies Medications * Be aware that medications may not be up to date on this document. Alwaysverify current medications with the patient. 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 RIGGER Gender Identity Not on file Sexual Orientation Not on file Last Filed Vital Signs Vital Sign Reading Time Taken Comments Blood Pressure 113/75 12/10/2017 1:40 PM CDT Pulse 100 12/10/2017 1:40 PM CDT Temperature 36.5 C (97.7 F) 12/10/2017 7:17 AM CDT Respiratory Rate 16 12/10/2017 1:40 PM CDT Oxygen Saturation 96% 12/10/2017 1:40 PM CDT Inhaled Oxygen Concentration - - Weight 111.1 kg (245 lb) 12/10/2017 7:17 AM CDT Height 188 cm (6' 2 ) 12/10/2017 7:17 AM CDT Body Mass Index 31.46 12/10/2017 7:17 AM CDT Plan of Treatment Health Maintenance Due Date Last Done Comments COLOGUARD (AGES 45-75) - COL ON CA SCREENING 1974 COLON MONITORING 1974 COLONOSCOPY - COLON CA SCREENING 1974 CT COLONOGRAPHY - COLON CA SCREENING 1974 Colorectal Cancer Screening 1974 FIT - COLON CA SCREENING 1974 FLEX SIG - COLON CA SCREENING 1974 LIPID TESTING 1974 HIV SCREENING 1989 HEPATITIS C SCREENING 01/10/1992 DTAP/TDAP/TD VACCINES (1 - Tdap) 1993 HEPATITIS B VACCINE (1 of 3 - 19+ 3-dose series) 1993 PNEUMOCOCCAL VACCINE 50+ (1 of 1 - PCV) 01/15/2024 ZOSTER VACCINE (1 of 2) 01/15/2024 COVID-19 VACCINE (1 - 2023-2 5 season) 2024 DEPRESSION SCREENING 08/03/2024 INFLUENZA VACCINE (Season Ended) 2025 HIB VACCINE Aged Out No longer eligi ble based on patient's age to complete this topic HPV VACCINE Aged Out No longer eligi ble based on patient's age to complete this topic MENINGOCOCCAL (Group B) VACC INE SHARED DECISION-MAKING Aged Out No longer eligibl e based on patient's age to complete this topic MENINGOCOCCAL GROUPS A/C/Y/W VACCINE Aged Out No longer eligible b ased on patient's age to complete this topic Insurance Advance Directives * Full Code (Latest Code Status on File) Date Activated Date Inactivated Comments 12/10/2017 10:34 AM 12/10/2017 3:11 PM
--- OUTSIDE RECORDS SUMMARY | 2024-12-04 12:46 | XMS_ITS | Clinical Summary ---
Author Organization [facility] Address [address] [place] [address] Care Team Providers Care Marine Electrician Apprentice Name Role Phone Yessica Rogers MD Unavailable [phone] Varun Alicia DO Unavailable [phone] Mitch Liao Primary Care Provider Allergies No known active allergies Medications buPROPion [...] mg total) by mouth daily Active rizatriptan OCEANOGRAPHY PROFESSOR (MAXALT-OCEANOGRAPHY PROFESSOR) 10 mg disintegrating tabletIndications: Migraine Take 1 [...] daily. Assessment & Plan (10/07/2024 8:59 AM SPARE HAND CARDING): We discussed LDL cholesterol goal less than 70 mg/dL. Patient agreeable to getting another fasting lipid/liver panel in about a month. I expect his LDL to be much lower at that time. Assessment & Plan (09/13/2024 9:23 AM SPARE HAND CARDING): Discussed LDL cholesterol goal of less than [...] 6-8 weeks. Coronary artery disease invo lving [place] coronary artery of [place] heart 01/24/2020 Overview (09/27/2024): Mild by catheterization on 12 January 2014 (RL) with 25% ostial left main stenosis, 25% diffuse proximal RCA stenosis and 25% mid to distal LAD stenosis. Normal Cardiolite on 27 September 2024. LVEF of 63%. Assessment & Plan (09/13/2024 9:21 AM SPARE HAND CARDING): We discussed cardiac catheterization result 10 years [...] soon. Assessment & Plan (08/28/2022 3:03 PM SPARE HAND CARDING): We discussed cardiac catheterization findings from 8 years ago. Patient denies any chest pain or shortness of breath with exertion. No change in medical regimen here. Assessment & Plan (08/22/2021 3:37 PM SPARE HAND CARDING): Patient denies any chest pain or shortness [...] interrogation. Assessment & Plan (09/13/2024 9:21 AM SPARE HAND CARDING): No recent palpitations, dizziness or syncope. loop recorder will be removed soon. Assessment & Plan (08/28/2022 3:03 PM SPARE HAND CARDING): Patient has done quite well. We discussed an EP evaluation to see if he could benefit from an ablation. He is agreeable to see Dr. Pulido at [facility] for a new patient visit. No change in Toprol-XL dose at this time. He never filled his ivabradine prescription. Assessment & Plan (08/22/2021 3:38 PM SPARE HAND CARDING): Multiple episodes of heart rate to the [...] seen Dr. Hayden for tilt-table study in 2018 and it was abnormal at that time. Device hit TOMMY in November 2023. Loop recorder was removed on 04 October 2024 (RL). Assessment & Plan (10/07/2024 8:58 AM SPARE HAND CARDING): No problems since loop recorder removed. Assessment & Plan (09/13/2024 9:20 AM SPARE HAND CARDING): He has not had any syncope for [...] future. Assessment & Plan (08/06/2017 5:30 PM SPARE HAND CARDING): This is a recurrent problem for the patient happening 5th time. Prior workup was negative. Patient had CardioNet monitor for 17 days, did not show any arrhythmias. Dr. lynn is her recommending loop recorder and he spoke to Dr. Drew elizabeth at [facility] for possible EP study. Orthostatic blood pressures are pending. All the workup is still negative, EKG does not show any tachyarrhythmia, Brugada syndrome or WPW syndrome. Telemetry monitoring showing sinus rhythm. Neurology consultation obtained. Recommending EEG and loop recorder. Pain in right hand 08/06/2017 Assessment & Plan (08/06/2017 5:34 PM SPARE HAND CARDING): This is secondary to a fall due to syncope. X-ray of right hand shows old fracture at navicular bone. No new fractures or dislocation. Will continue pain medications. Left shoulder pain 08/06/2017 Assessment & Plan (08/06/2017 5:48 PM SPARE HAND CARDING): This is due to a fall. X-rays show no fracture or dislocation. Will continue pain medication Orthostatic hypotension 08/06/2017 Assessment & Plan (08/06/2017 5:49 PM SPARE HAND CARDING): Continue IV fluid and check orthostatic blood pressures tomorrow. Contusion of left hip Contusion of left shoulder Contusion of right hand Encounters Date Type Department Care Team Description 11/07/2024 11:00 AM CDT Office Visit [facility] at [address] [address] Susu Anderson NP Incisional infection (Primary Dx) 10/07/2024 8:15 AM SPARE HAND CARDING Office Visit [facility] at [address] [address] Yessica Rogers MD Elevated LDL cholesterol level (Primary Dx); Syncope and collapse 10/04/2024 9:00 AM SPARE HAND CARDING - 10/04/2024 10:35 AM SPARE HAND CARDING Surgery [facility] Cardiac Catheterization [address] [place] [address] Yessica Rogers MD IMPLANTABLE CARDIAC EVENT MONITOR REMOVAL [id number] 10/04/2024 7:40 AM SPARE HAND CARDING - 10/04/2024 11:07 AM SPARE HAND CARDING Hospital Encounter [facility] Cardiac Catheterization [address] [place] [address] Yessica Rogers MD Encounter for interrogation of cardiac recorder Discharge Disposition: Discharge to home or self care 09/27/2024 10:00 AM SPARE HAND CARDING Lab [address] [address] Encounter for interrogation of cardiac recorder 09/27/2024 8:27 AM SPARE HAND CARDING - 09/27/2024 11:59 PM SPARE HAND CARDING Hospital Encounter [facility] Cardiology [address] [place] [address] Encounter for interrogation of cardiac recorder Discharge Disposition: Discharge to home or self care 09/27/2024 7:41 AM SPARE HAND CARDING - 09/27/2024 11:59 PM SPARE HAND CARDING Hospital Encounter [address] [address] Discharge Disposition: Discharge to home or self care 09/27/2024 7:41 AM SPARE HAND CARDING - 09/27/2024 11:59 PM SPARE HAND CARDING Hospital Encounter [facility] Cardiology [address] [place] [address] Coronary artery disease involving [place] coronary artery of [place] heart without angina pectoris Discharge Disposition: Discharge to home or self care 09/27/2024 7:40 AM SPARE HAND CARDING - 09/27/2024 11:59 PM SPARE HAND CARDING Hospital Encounter [address] [address] Discharge Disposition: Discharge to home or self care 09/27/2024 7:40 AM SPARE HAND CARDING - 09/27/2024 11:59 PM SPARE HAND CARDING Hospital Encounter [address] [address] Coronary artery disease involving [place] coronary artery of [place] heart without angina pectoris Discharge Disposition: Discharge to home or self care 09/27/2024 Results Follow-Up [facility] at [address] [address] Yessica Rogers MD 09/27/2024 Results Follow-Up [facility] at [address] [address] Yessica Rogers MD 09/13/2024 9:00 AM SPARE HAND CARDING Office Visit [facility] at [address] [phone] Yessica Rogers MD Elevated LDL cholesterol level (Primary Dx); Syncope and collapse; Paroxysmal SVT (supraventricular tachycardia) (CMS/HCC) (HCC); Coronary artery disease involving [place] coronary artery of [place] heart without angina pectoris from Last 3 Months Immunizations Immunization Administration Dates Next Due Influenza, Quadrivalent, Spl it, Preservative Free, Intramuscular 08/07/2017 Surgical History Surgery Date Site/Laterality Comments CARDIAC ELECTROPHYSIOLOGY PROCEDURE 08/03/2017 - 09/02/2017 N/A ARM SURGERY CARDIAC ELECTROPHYSIOLOGY PROCEDURE 10/04/2024 N/A Procedure: IMPLANTABLE CARDIAC EVENT MONITOR REMOVAL [id number]; Surgeon: Yessica Rogers MD; Location: [facility] 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 Does not want to be awake for procedure or he will pass out he states. Medical History Medical History Date Comments Asthma Syncope and collapse Migraine Family History Medical History Relation Name Comments Cancer Father Hypertension Mother Hypertension; Stroke Mother Stroke; Relation Name Status Comments Father Mother Social History Tobacco Use Types Packs/Day [...] often do you attend chur ch or evangelical services? Never 01/16/2023 Do you belong to any clubs o r organizations such as restoration groups, unions, fraternal or athletic groups, or [...] place to sleep or slept in a [place] facility (including now)? No 01/16/2023 Personal Safety Answer [...] on file Legal Sex Male 1:47 AM SPARE HAND CARDING Gender Identity Male 08/20/2021 9:51 AM SPARE HAND CARDING Sexual Orientation Straight 08/20/2021 9: 51 AM SPARE HAND CARDING Obstetrics History Last Filed Vital Signs Vital Sign Reading Time Taken Comments Blood Pressure 115/79 10/04/2024 11:00 AM SPARE HAND CARDING Pulse 55 10/04/2024 11:00 AM SPARE HAND CARDING Temperature 36.5 C (97.7 F) 10/04/2024 8:04 AM SPARE HAND CARDING Respiratory Rate 12 10/04/2024 11:0 0 AM SPARE HAND CARDING Oxygen Saturation 98% 10/04/2024 11: 00 AM SPARE HAND CARDING Inhaled Oxygen Concentration - - Weight 114.4 kg (252 lb 1.6 oz) 10/04/2024 8:05 AM SPARE HAND CARDING Height 182.9 cm (6') 09/13/2024 9:03 AM SPARE HAND CARDING Body Mass Index 34.19 09/13/2024 9:03 AM SPARE HAND CARDING Plan of Treatment Health Maintenance Due Date Last Done Comments Colon Cancer Screening-Colonoscopy 1975 Depression Screening 1975 Hepatitis C Screening 1975 Prostate Cancer Screening-PSA 1974 DTaP/Tdap/Td Vaccine (1 - Tdap) 1985 Hepatitis B Screening 01/15/1992 Regular Well Visit/Exam 18-64 01/15/1992 Pneumococcal vaccine <65 (1 of 2 - PCV) 1993 Zoster Vaccine (1 of 2) 01/15/2024 Influenza Vaccine Completed 09/13/2024, , 08/07/2017 Medical Devices Implanted Type Area Food Technology Teacher Device Identifier Shelf Expiration Date Model / Serial / Lot Device Cardiac Biomonitor Implantable Sterile Latex Free - [id number] Implanted:Qty: 1 on 08/07/2017 by Yessica Rogers MD at [facility] [employer] 09/02/2017 [id number] / / Procedures Procedure Name Priority Date/Time Associated Diagnosis Comments LOOP RECORDER REMOVAL Routine 10/04/2024 9:57 AM SPARE HAND CARDING Encounter for interrogation of cardiac recorder STRESS TEST FOR DUAL READ Schedule Routine, Read Routine (OP Routine) 09/27/2024 10:26 AM SPARE HAND CARDING Coronary artery disease involving [place] coronary artery of [place] heart without angina pectoris NM MPI SPECT (REST AND/OR STRESS) MULTIPLE STUDIES Schedule Routine, Read Routine (OP Routine) 09/27/2024 10:26 AM SPARE HAND CARDING Coronary artery disease involving [place] coronary artery of [place] heart without angina pectoris EGFR Routine 09/27/2024 9:55 AM SPARE HAND CARDING Encounter for interrogation of cardiac recorder DIFFERENTIAL AUTO Routine 09/27/2024 9:5 5 AM SPARE HAND CARDING Encounter for interrogation of cardiac recorder PROTIME-INR Routine 09/27/2024 9:55 AM SPARE HAND CARDING Encounter for interrogation of cardiac recorder BASIC METABOLIC PANEL Routine 09/27/2024 9:55 AM SPARE HAND CARDING Encounter for interrogation of cardiac recorder CBC WITH AUTO DIFFERENTIAL Routine 09/27/2024 9:55 AM SPARE HAND CARDING Encounter for interrogation of cardiac recorder ECG 12-LEAD Routine 09/27/2024 8:48 AM SPARE HAND CARDING Encounter for interrogation of cardiac recorder from Last 3 Months Results * LOOP RECORDER REMOVAL (10/04/2024 9:57 AM SPARE HAND CARDING) Anatomical Region Laterality Modality X-Ray Angiograph y 10/04/2024 Narrative 10/07/2024 10:40 AM SPARE HAND CARDING [employer] Job ID: [id number] [employer] Document ID: [id number] Dictated date/time: [id number] NAME OF CARDIAC PROCEDURE Removal of loop recorder. PROCEDURE The patient was brought down to the crown and bridge dental lab technician where a time-out was done just prior [...] office next week. Job ID/Internal Job ID: [id number] us Yessica Rogers MD CV ELECTROPHYSIOLOGY PROCS Fi nal Result * NM MPI SPECT (Rest and/or Stress) Multiple Studies (09/27/2024 10:26 AM SPARE HAND CARDING) Anatomical Region Laterality Modality Body N/A Nuclear Medicine 09/27/2024 7:47 AM SPARE HAND CARDING Narrative 09/27/2024 11:47 AM SPARE HAND CARDING [address] [place] [address] MPI Report Patient Name: JOSE MALAVE D : 1975 Study Date: 09/27/2024 7:47:03 AM Gender: M Tech: Ref Provider: YESSICA ROGERS Height(Cm): BSA: Weight(Kg): Order Provider: YESSICA ROGERS PROCEDURES: Exercise SPECT Report.: Myocardial Perfusion Imaging at rest and post exercise. INDICATIONS: I25.10 Atherosclerotic heart disease of [place] coronary artery without angina pectoris. FINDINGS: Procedure [...] By: Shelby Oconnell MD 09/27/2024 11:00:11 AM SPARE HAND CARDING Procedure Note Shelby Oconnell MD - 09/27/[address] [place] [address] MPI Report Patient Name: JOSE MALAVE Nilesh : 1975 Study Date: 09/27/2024 7:47:03 AM Gender: M Tech: Ref Provider: YESSICA ROGERS Height(Cm): BSA: Weight(Kg): Order Provider: YESSICA ROGERS PROCEDURES: Exercise SPECT Report.: Myocardial Perfusion Imaging at rest and post exercise. INDICATIONS: I25.10 Atherosclerotic heart disease of [place] coronary artery withoutangina pectoris. FINDINGS: Procedure Data: [...] By: Shelby Oconnell MD 09/27/2024 11:00:11 AM SPARE HAND CARDING Yessica Rogers MD [facility] PROCEDURES Final Resul t * Stress Test for Myocardial Perfusion (09/27/2024 10:26 AM SPARE HAND CARDING) Anatomical Region Laterality Modality Nuclear Medicine 09/27/2024 8:30 AM SPARE HAND CARDING Narrative 09/27/2024 1:30 PM SPARE HAND CARDING [address] [address] MPI ECG Report Patient Name: JOSE MALAVENilesh : 1975 Study Date: 09/27/2024 8:30:00 AM Gender: M Tech: jose dailey Ref Provider: YESSICA ROGERS Height(Cm): 183 BSA: 3.57 Weight(Kg): 251 Heart Rate: 145 Order Provider: YESSICA ROGERS PROCEDURES: Exercise SPECT Report.: Myocardial Perfusion Imaging at rest and post exercise. INDICATIONS: I25.10 Atherosclerotic heart disease of [place] coronary artery without angina pectoris. FINDINGS: Procedure Data: Exercise Time: 10:00 Resting HR 79 bpm Peak HR: 157 bpm Predicted Maximal HR 170 bpm Target HR: 145 bpm Percent Max Predicted HR Achieved: 92 % METS achieved: 10.3 Rate-Pressure Product: 44885 BPM*mmHg Medications: Medications None, aspirin, bumex, capoten, [...] By: Shelby Oconnell MD 09/27/2024 12:54:58 PM SPARE HAND CARDING Procedure Note Shelby Oconnell MD - 09/27/[address] [address] MPI ECG Report Patient Name: JOSE MALAVE D : 1975 Study Date: 09/27/2024 8:30:00 AM Gender: M Tech: jose dailey Jose Armando Provider: YESSICA ROGERS Height(Cm): 183 BSA: 3.57 Weight(Kg): 251 Heart Rate: 145 Order Provider: YESSICA ROGERS PROCEDURES: Exercise SPECT Report.: Myocardial Perfusion Imaging at rest and post exercise. INDICATIONS: I25.10 Atherosclerotic heart disease of [place] coronary artery withoutangina pectoris. FINDINGS: Procedure Data: Exercise Time: 10:00 Resting HR 79 bpm Peak HR: 157 bpm Predicted Maximal HR 170 bpm Target HR: 145 bpm Percent Max Predicted HR Achieved: 92 % METS achieved: 10.3 Rate-Pressure Product: 11446 BPM*mmHg Medications: Medications None, aspirin, bumex, capoten, [...] By: Shelby Oconnell MD 09/27/2024 12:54:58 PM SPARE HAND CARDING Yessica Rogers MD CV STRESS PROCEDURES Final Re sult * eGFR (09/27/2024 9:55 AM SPARE HAND CARDING) eGFR 80 >=60 mL/min/1. 73 m2 Comment: [...] last reviewed 2021. Blood 09/27/2024 9:55 AM SPARE HAND CARDING 09/27/2024 10:44 AM SPARE HAND CARDING Yessica Rogers MD LAB BLOOD ORDERABLES Final Re sult [facility] 1 [facility] Department of Laboratories [place], [place] [id number] * Differential, auto (09/27/2024 9:55 AM SPARE HAND CARDING) Neutrophil abs 3.3 1.5 - 6.5 K/cumm Imm gran abs 0.0 0.0 - 0.1 K/cumm [facility] ([place]) Lymphocyte abs 3.0 0.8 - 3.3 K/cumm [facility] ([place]) Monocyte abs 0.4 0.2 - [...] revised on 2017. Blood 09/27/2024 9:55 AM SPARE HAND CARDING 09/27/2024 10:44 AM SPARE HAND CARDING us Yessica Rogers MD LAB BLOOD ORDERABLES Final Re sult [facility] ([place]) 1 [facility] Department [place] [address] * CBC with auto differential (09/27/2024 9:55 AM SPARE HAND CARDING) WBC 6.9 3.8 - 9.9 K/cumm Hgb [...] NRBC abs 0.00 0.00 - 0.01 K/cumm [facility] Blood 09/27/2024 9:5 5 AM SPARE HAND CARDING 09/27/2024 10:44 AM SPARE HAND CARDING us Yessica Rogers MD LAB BLOOD ORDERABLES Final Re sult [facility] ([place]) 1 [facility] Department [place] [address] * Protime-INR (09/27/2024 9:55 AM SPARE HAND CARDING) PT 11.7 9.7 - 13.0 sec [facility] INR 1.08 0.90 - 1.[address] [facility] Comment: Interpretive data Oral anticoagulant therapeutic ranges: Venous thromboembolism prophylaxis or treatment: 2.0-3.0 CARDIOLOGY Standard range: 2.0-3.0 High-intensity range: 2.5-3.5 Refer to indication-specific guidelines for appropriate target ranges for prosthetic heart valve replacement. Current interpretive data was last revised on 2019. Blood 09/27/2024 9:55 AM SPARE HAND CARDING 09/27/2024 10:44 AM SPARE HAND CARDING us Yessica Rogers MD LAB BLOOD ORDERABLES Final Re sult [facility] ([place]) 1 [facility] Department [place] [address] * Basic metabolic panel (09/27/2024 9:55 AM SPARE HAND CARDING) Sodium 143 135 - 145 mmol/L Potassium, pl 4.1 3.3 - 4.9 mmol/L [facility] Chloride 107 97 - 110 mmol/L [facility] CO2 27 22 - 32 mmol/L [facility] Anion gap 9 2 - 15 mmol/L [facility] BUN 10 6 - 25 mg/dL [facility] Creatinine 1.12 0.80 - 1.30 mg/dL [facility] Glucose 118 70 - 199 mg/dL [facility] Comment: Interpretive Data Fasting glucose >/= [...] classification and Diagnosis of Diabetes Diabetes Care 202; 46: S19-S40. Current interpretive data was last revised 2022. Calcium 9.3 8.5 - 10.3 mg/dL [facility] Blood 09/27/2024 9:55 AM SPARE HAND CARDING 09/27/2024 10:44 AM SPARE HAND CARDING us Yessica Rogers MD LAB BLOOD ORDERABLES Final Re sult [facility] ([place]) 1 [facility] Department [place] [address] * ECG 12 lead (09/27/2024 8:48 AM SPARE HAND CARDING) 09/27/2024 8:52 AM SPARE HAND CARDING Narrative [facility] - 09/27/2024 9:30 AM SPARE HAND CARDING Vent Rate: 57 bpm RR Interval: 1045 msec [place] Interval: 155 msec QRS Duration: 101 msec QT Interval: 408 msec QTC Interval: 402 msec P-R-T [place]: 72 - 27 - 52 degrees IMPRESSION: SINUS BRADYCARDIA BORDERLINE ECG NO CHANGE FROM PREVIOUS TRACING NOTED Electronically Signed By: Chidi Sethi MD us Yessica Rogers MD ECG ORDERABLES Final Result [facility] from Last 3 Months Insurance [facility] H[facility]/PPO Address: [facility] [address] [place] [address] Advance Directives For more information, please contact: [phone] * Full Code (Latest Code Status on File) Date Activated Date Inactivated Comments 10/04/2024 9:50 AM 10/04/2024 3:13 PM * Full Code Date Activated Date Inactivated Comments 01/15/2023 11:45 AM 01/20/2023 3:17 PM * Full Code Date Activated Date Inactivated Comments 08/25/2017 1:48 AM 08/25/2017 8:43 PM * Full Code Date Activated Date Inactivated Comments 08/06/2017 2:25 AM 08/07/2017 9:11 PM Care Teams Marine Electrician Apprentice Relationship Specialty Start Date End Date Mitch Liao PA [address] [place] [address] PCP - General Physician Casting Chipper 02/26/23 Yessica Rogers MD Registered Nurse Cardiovascular Disease 08/07/17 Varun Alicia DO Consulting Physician Cardiology 08/07/17
--- NOTE | 2024-12-04 12:51 | ED_ITS ---
HPI - Abdominal Pain General Chief Complaint: Urogenital-Male Stated Complaint: fever, diarrhea Source: patient Mode of arrival: ambulatory Limitations: no limitations History of Present Illness HPI narrative: Patient is a 49-year-old male with diarrhea for the past 2 days after a possible exposure of Campylobacter stool culture positive from his grandson in the past week. He has not been able to tolerate food and he has been having diarrhea every 1/2 hour to hour. MD elicited complaint: abdominal pain and flank pain Pertinent past history: none Onset (ago): day(s) ( Two) Pain Consistency: constant Location: diffuse Severity: mild Pain scale (0-10): 2 Quality: dull Radiation: epigastric Migration to: no migration Exacerbating factors: nothing Relieving factors: nothing Context: confirms possible food poisoning and confirms sick contacts Associated symptoms: diarrhea Treatments prior to arrival: other ( none) Related Data Home Medications ?Medication ?Instructions ?Recorded ?Confirmed ?Last Taken ?Type atorvastatin 40 mg tablet mg 12/04/24 Unknown History trazodone 50 mg tablet mg 12/04/24 Unknown History Allergies Allergy/AdvReac Type Severity Reaction Status Date / Time No Known Allergies Allergy Unknown Verified 12/04/24 12:59 Review of Systems 2 Review of Systems: All systems reviewed & are unremarkable except as noted in HPI and below Constitutional: Constitutional: Reports no additional constitutional complaints Eyes: Eyes: Reports no additional eye complaints ENT: Reports system reviewed and no additional complaints, except as documented Cardiovascular: Cardiovascular: Reports no additional cardiovascular complaints Respiratory: Respiratory: Reports no additional respiratory complaints Gastrointestinal: Gastrointestinal: Reports no additional gastrointestinal complaints Genitourinary: Genitourinary: Reports no additional male genitourinary complaints Musculoskeletal: Musculoskeletal: Reports no additional musculoskeletal complaints Integumentary/Breasts: Skin/Breast: Reports system reviewed and no additional complaints, except as docu Neurologic: Reports system reviewed and no additional complaints, except as documented Psychiatric: Psychiatric: Reports no additional psychiatric complaints Endocrine: Endocrine: Reports no additional endocrine complaints Hematologic/Lymphatic: Hematologic/Lymphatic: Reports no additional hematologic/lymphatic complaints Allergic/Immunologic: Allergic/Immunologic: Reports no additional allergic/immunologic complaints Exam 2 Const: General: ill appearing Nutritional Appearance: well nourished O rientation/consciousness: patient oriented x3 Limitations: no limitations HENMT: Head: normal to inspection Ears: external ears normal F mario/Nose/Sinus: Normal external nose present Eyes: Conjunctivae: conjunctivae normal Pupils: Equal, round and reactive pupils present EOM: EOMs intact bilaterally Neck: Neck: normal visual inspection Chest: Chest palpation & inspection: normal inspection of the chest Resp: Effort & Inspection: normal respiratory effort and not labored A uscultation: clear to auscultation bilaterally and no crackles Cardio: Rate: regular rate Rhythm: regular rhythm Heart sounds: no murmurs GI: Inspection: non-distended GI Palp: Yes Soft to palpation, Yes Tenderness to palpation present (GI) ( diffuse but not specific to left or right lower quadrant), No Guarding due to palpation present (GI), No Rigid due to palpation, No Hernia present, No Palpable mass present and No Rebound tenderness present Auscultation: Hyperactive bowel sounds present : General: Yes bladder normal to palpation Back/Spine/Pelvis: Back: no CVA tenderness Skin: General skin exam: normal color Rashes: no rashes Wounds: no wounds Neuro: General: patient oriented x3 Cranial nerves: Yes Nystagmus not present Speech: normal speech Extrem: General: normal to inspection Psych: Mental Status: mental status grossly normal Affect: normal affect Attitude: cooperative Course Vital Signs Vital signs: Vital Signs Temperature 37.0 C 12/04/24 12:44 Pulse Rate 102 H 12/04/24 12:44 Respiratory Rate 18 12/04/24 12:44 Blood Pressure 136/97 H 12/04/24 12:44 Pulse Oximetry 97 12/04/24 12:44 Oxygen Delivery Room Air 12/04/24 12:44 Temperature 37.0 C 12/04/24 12:44 Pulse Rate 84 12/04/24 13:17 Respiratory Rate 20 12/04/24 13:17 Blood Pressure 132/83 12/04/24 14:45 Pulse Oximetry 98 12/04/24 14:46 Oxygen Delivery Room Air 12/04/24 13:17 MDM - Abdominal Pain MDM Narrative Medical decision making narrative: patient is a 49-year-old male with diarrhea and dehydration. He was exposed to Campylobacter. We will do a GI workup at this time but he will need Azithro or Cipro either way on the discharge. Lab Data Attestation: I reviewed the patient's lab results. 12/04/24 14:07 12/04/24 14:07 Labs: Lab Results 12/04/24 12/04/24 Range/Units 12:52 14:07 WBC 6.3 (4.8-10.8) K/mm3 RBC 4.86 (4.70-6.10) M/mm3 Hgb 14.3 (14.0-18.0) g/dL Hct 42.9 (40.0-54.0) % MCV 88.3 (78.0-102.0) fL MCH 29.4 (27.0-31.0) pg MCHC 33.3 (32-36) g/dL RDW 11.9 (11.6-14.4) % Plt Count 141 L (150-420) K/mm3 MPV 9.8 (8.7-11.0) fl Immature Gran % (Auto) 0.2 H (0.0-0.0) % Neut % (Auto) 69.6 (50.0-70.0) % Lymph % (Auto) 21.7 (18.0-42.0) % [place] % (Auto) 7.9 (2.0-11.0) % Eos % (Auto) 0.3 L (1.0-6.0) % Baso % (Auto) 0.3 (0.0-1.0) % Lymph # (Auto) 1.37 (1.10-4.50) K/mm3 [place] # (Auto) 0.50 (0.10-0.90) K/mm3 Eos # (Auto) 0.02 (0.02-0.50) K/mm3 Baso # (Auto) 0.02 (0.00-0.10) K/mm3 Abs Immat Gran (auto) 0.01 H (0.00-0.00) K/mm3 Absolute Neuts (auto) 4.40 (1.70-7.20) K/mm3 Absolute Nucleated RBC 0.00 (0.00-0.00) K/mm3 Nucleated RBC % 0.0 (0-0.0) % % Immature Plt Fraction 2.4 (1.0-7.0) % Sodium 139 (136-145) mmol/L Potassium 3.4 L (3.5-5.1) mmol/L Chloride 104 (98-108) mmol/L Carbon Dioxide 26 (21-32) mmol/L Anion Gap 9 (4-12) mmol/L BUN 11 (7-18) mg/dL Creatinine 1.39 H (0.70-1.30) mg/dL Estim Creat Clear Calc 74 ml/min Estimated GFR 54 L (59 - ) Glucose 100 H (70-99) mg/dL Calculated Osmolality 287 (285-295) mOsm/kg Lactic Acid 1.0 (0.4-2.0) mmol/L Calcium 7.7 L (8.5-10.1) mg/dL Magnesium 1.6 L (1.8-2.4) mg/dL Total Bilirubin 1.0 (0.00-1.00) mg/dL AST 26 (15-37) U/L ALT 32 (16-63) U/L Alkaline Phosphatase 65 (46-116) U/L Total Protein 6.5 (6.4-8.2) g/dL Albumin 3.1 L (3.4-5.0) g/dL Lipase 26 (16-77) U/L Urine Color Dark orange (Yellow) Urine Appearance Clear (Clear) Urine pH 5.5 (5.0-8.0) Ur Specific [place] >= 1.030 H (1.010-1.020) Urine Protein 2+ H (Negative) Urine Glucose (UA) Negative (Negative) Urine Ketones Trace H (Negative) Ur Blood (Man) 1+ H (Negative) Urine Nitrate Negative (Negative) Urine Bilirubin 1+ H (Negative) Urine Urobilinogen 1.0 (0.2-1.0) mg/dL Leukocyte Esterase Rfl Negative (Negative) DANILO/UL Urine RBC 0-2 (0-2) /hpf Amorphous Sediment Few H (None) Hyaline Casts 50+ H (None) /lpf Granular Casts 20-29 H (None) /lpf Urine Mucus Moderate H /lpf Imaging Data Attestation: I personally reviewed and interpreted this imaging study as follows: My impression: I discussed the case with surgery on-call at [facility] today and there is no sign of ischemia at this time; he felt this is probably the Campylobacter and a questionable C diff; we will treat both Radiologist's impression: ITS Impressions Abdomen/Pelvis CT 12/04/24 14:08 IMPRESSION: Hepatomegaly. Diffuse infectious, inflammatory, or ischemic colitis. Discharge Plan Discharge Clinical Impression: Infectious colitis, Acute dehydration Patient Disposition: Home Condition: Stable Instructions: Antibiotic Form, Colitis (ED) Patient Language: [place] Citizen Prescriptions: New ciprofloxacin HCl [Cipro] 500 mg tablet 500 mg PO BID 10 Days Qty: 20 0RF metronidazole 500 mg tablet 500 mg PO TID 10 Days Qty: 30 0RF No Action atorvastatin 40 mg tablet trazodone 50 mg tablet Follow-up/Referrals: Yanni,TAB Meyer [Primary Care Provider] - Time of Disposition: 15:28
[2024-12-04 13:07] LABS: Appearance Urine Clear (Clear); Bilirubin Urine 1+ (Negative); Blood Urine 1+ (Negative); Glucose Urine UA Negative (Negative); Ketones Urine Trace (Negative); Leukocyte Esterase Ur Negative LEU/UL (Negative); Nitrate Urine Negative (Negative); Protein Urine 2+ (Negative); Specific Grav Ur >= 1.030 (1.010-1.020); pH Urine 5.5 (5.0-8.0)
[2024-12-04 13:14] LABS: Add Urine Microscopic? YES; Color Urine Dark Orange (Yellow); RBC Urine 0-2 /hpf (0-2)
[2024-12-04 13:15] LABS: Amorphous Sediment Urine Few; Granular Casts Urine 20-29 /lpf; Hyaline Casts Urine 50+ /lpf; Mucus Urine Moderate /lpf
[2024-12-04] MEDS: SODIUM CHLORIDE 0.9% IV 1,000 ML 999 ML IV CONT (13:20)
--- OUTSIDE RECORDS SUMMARY | 2024-12-04 13:34 | XMS_ITS | Clinical Summary ---
Author Organization [facility] Address [address] [place] [address] Care Team Providers Care Bench Assembler Name Role Phone Unavailable Primary Care Provider Unavailabl e Source Comments [facility],non-owned Affiliates and Associated Physician Practices is amultiple site organization consisting of ambulatory clinics and hospital sitesin [place], [place], [place] and [place]. This disclosure is being madepursuant to the Care Everywhere program and may not contain all informatio navailable regarding this patient. 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
--- OUTSIDE RECORDS SUMMARY | 2024-12-04 13:34 | XMS_ITS | Clinical Summary ---
Author Organization [facility] Address [address] [facility], [place] [address] Phone Care Team Providers Care Supervisor Orchard Name Role Phone Aristeo Bonilla APRN, STUDY COORDINATOR Primary Care Pro vider Allergies No known [...] patient's age to complete this topic Insurance [facility] Care Teams Supervisor Orchard Relationship Specialty Start Date End Date Aristeo Bonilla APRN, STUDY COORDINATOR [address] [place] [address] [address] [facility] [address] [place] [address] PCP - General Advanced Practice Nurse 01/13/18
--- OUTSIDE RECORDS SUMMARY | 2024-12-04 13:34 | XMS_ITS | Referral Summary ---
Author Organization [facility] Address [address] [place] [address] Care Team Providers Care Admitting Office Escort Name Role Phone Yessica Rogers MD Unavailable [phone] Varun Alicia DO Unavailable [phone] Mitch Liao Primary Care Provider Encounters Date Type Department Care Team Description 11/07/2024 11:00 AM CDT Office Visit [facility] at [address] [place] [phone] Susu Anderson NP Incisional infection (Primary Dx) 10/07/2024 8:15 AM BUSINESS ANALYSIS PROFESSIONAL Office Visit [facility] Division Leader at [address] [phone] Yessica Rogers MD Elevated LDL cholesterol level (Primary Dx); Syncope and collapse 10/04/2024 9:00 AM BUSINESS ANALYSIS PROFESSIONAL - 10/04/2024 10:35 AM BUSINESS ANALYSIS PROFESSIONAL Surgery [facility] Cardiac Catheterization [address] [place] [phone] Yessica Rogers MD IMPLANTABLE CARDIAC EVENT MONITOR REMOVAL [id number] 10/04/2024 7:40 AM BUSINESS ANALYSIS PROFESSIONAL - 10/04/2024 11:07 AM BUSINESS ANALYSIS PROFESSIONAL Hospital Encounter [facility] Cardiac Catheterization [address] [place] [phone] Yessica Rogers MD Encounter for interrogation of cardiac recorder Discharge Disposition: Discharge to home or self care 09/27/2024 Results [facility]-Up [facility] at [address] [phone] Yessica Rogers MD 09/27/2024 Results [facility]-Up [facility] at [address] [phone] Yessica Rogers MD 09/27/2024 10:00 AM BUSINESS ANALYSIS PROFESSIONAL Lab [address] [phone] Encounter for interrogation of cardiac recorder 09/27/2024 8:27 AM BUSINESS ANALYSIS PROFESSIONAL - 09/27/2024 11:59 PM BUSINESS ANALYSIS PROFESSIONAL Hospital Encounter [facility] Cardiology [address] [place] [phone] Encounter for interrogation of cardiac recorder Discharge Disposition: Discharge to home or self care 09/27/2024 7:41 AM BUSINESS ANALYSIS PROFESSIONAL - 09/27/2024 11:59 PM BUSINESS ANALYSIS PROFESSIONAL Hospital Encounter [address] [address] Discharge Disposition: Discharge to home or self care 09/27/2024 7:41 AM BUSINESS ANALYSIS PROFESSIONAL - 09/27/2024 11:59 PM BUSINESS ANALYSIS PROFESSIONAL Hospital Encounter [facility] Cardiology [address] [place] [address] Coronary artery disease involving [place] coronary artery of [place] heart without angina pectoris Discharge Disposition: Discharge to home or self care 09/27/2024 7:40 AM BUSINESS ANALYSIS PROFESSIONAL - 09/27/2024 11:59 PM BUSINESS ANALYSIS PROFESSIONAL Hospital Encounter [facility] [address] [place] [address] Discharge Disposition: Discharge to home or self care 09/27/2024 7:40 AM BUSINESS ANALYSIS PROFESSIONAL - 09/27/2024 11:59 PM BUSINESS ANALYSIS PROFESSIONAL Hospital Encounter [address] [address] Coronary artery disease involving [place] coronary artery of [place] heart without angina pectoris Discharge Disposition: Discharge to home or self care 09/13/2024 9:00 AM BUSINESS ANALYSIS PROFESSIONAL Office Visit [facility] Division Leader at [address] [place] [phone] Yessica Rogers MD Elevated LDL cholesterol level (Primary Dx); Syncope and collapse; Paroxysmal SVT (supraventricular tachycardia) (CMS/HCC) (HCC); Coronary artery disease involving [place] coronary artery of [place] heart without angina pectoris from Last 3 [...] mg total) by mouth daily Active rizatriptan HOST/HOSTESS GROUND (MAXALT-HOST/HOSTESS GROUND) 10 mg disintegrating tabletIndications: Migraine Take 1 [...] daily. Assessment & Plan (10/07/2024 8:59 AM BUSINESS ANALYSIS PROFESSIONAL): We discussed LDL cholesterol goal less than 70 mg/dL. Patient agreeable to getting another fasting lipid/liver panel in about a month. I expect his LDL to be much lower at that time. Assessment & Plan (09/13/2024 9:23 AM BUSINESS ANALYSIS PROFESSIONAL): Discussed LDL cholesterol goal of less than [...] 6-8 weeks. Coronary artery disease invo lving [place]ag coronary artery of [place] heart 01/24/2020 Overview (09/27/2024): Mild by catheterization on 12 January 2014 (RL) with 25% ostial left main stenosis, 25% diffuse proximal RCA stenosis and 25% mid to distal LAD stenosis. Normal Cardiolite on 27 September 2024. LVEF of 63%. Assessment & Plan (09/13/2024 9:21 AM BUSINESS ANALYSIS PROFESSIONAL): We discussed cardiac catheterization result 10 years [...] soon. Assessment & Plan (08/28/2022 3:03 PM BUSINESS ANALYSIS PROFESSIONAL): We discussed cardiac catheterization findings from 8 years ago. Patient denies any chest pain or shortness of breath with exertion. No change in medical regimen here. Assessment & Plan (08/22/2021 3:37 PM BUSINESS ANALYSIS PROFESSIONAL): Patient denies any chest pain or shortness [...] interrogation. Assessment & Plan (09/13/2024 9:21 AM BUSINESS ANALYSIS PROFESSIONAL): No recent palpitations, dizziness or syncope. loop recorder will be removed soon. Assessment & Plan (08/28/2022 3:03 PM BUSINESS ANALYSIS PROFESSIONAL): Patient has done quite well. We discussed an EP evaluation to see if he could benefit from an ablation. He is agreeable to see Dr. Pulido at [facility] for a new patient visit. No change in Toprol-XL dose at this time. He never filled his ivabradine prescription. Assessment & Plan (08/22/2021 3:38 PM BUSINESS ANALYSIS PROFESSIONAL): Multiple episodes of heart rate to the [...] (RL). Assessment & Plan (10/07/2024 8:58 AM BUSINESS ANALYSIS PROFESSIONAL): No problems since loop recorder removed. Assessment & Plan (09/13/2024 9:20 AM BUSINESS ANALYSIS PROFESSIONAL): He has not had any syncope for [...] future. Assessment & Plan (08/06/2017 5:30 PM BUSINESS ANALYSIS PROFESSIONAL): This is a recurrent problem for the patient happening 5th time. Prior workup was negative. Patient had CardioNet monitor for 17 days, did not show any arrhythmias. Dr. lynn is her recommending loop recorder and he spoke to Dr. Drew elizabeth at [facility] for possible EP study. Orthostatic blood pressures are pending. All the workup is still negative, EKG does not show any tachyarrhythmia, Brugada syndrome or WPW syndrome. Telemetry monitoring showing sinus rhythm. Neurology consultation obtained. Recommending EEG and loop recorder. Pain in right hand 08/06/2017 Assessment & Plan (08/06/2017 5:34 PM BUSINESS ANALYSIS PROFESSIONAL): This is secondary to a fall due to syncope. X-ray of right hand shows old fracture at navicular bone. No new fractures or dislocation. Will continue pain medications. Left shoulder pain 08/06/2017 Assessment & Plan (08/06/2017 5:48 PM BUSINESS ANALYSIS PROFESSIONAL): This is due to a fall. X-rays show no fracture or dislocation. Will continue pain medication Orthostatic hypotension 08/06/2017 Assessment & Plan (08/06/2017 5:49 PM BUSINESS ANALYSIS PROFESSIONAL): Continue IV fluid and check orthostatic blood [...] often do you attend chur ch or sabianist services? Never 01/16/2023 Do you belong to any clubs o r organizations such as tenriism groups, unions, fraternal or athletic groups, or [...] place to sleep or slept in a senior care (including now)? No 01/16/2023 Personal Safety Answer [...] on file Legal Sex Male 1:47 AM BUSINESS ANALYSIS PROFESSIONAL Gender Identity Male 08/20/2021 9:51 AM BUSINESS ANALYSIS PROFESSIONAL Sexual Orientation Straight 08/20/2021 9: 51 AM BUSINESS ANALYSIS PROFESSIONAL Last Filed Vital Signs Vital Sign Reading Time Taken Comments Blood Pressure 115/79 10/04/2024 11:00 AM BUSINESS ANALYSIS PROFESSIONAL Pulse 55 10/04/2024 11:00 AM BUSINESS ANALYSIS PROFESSIONAL Temperature 36.5 C (97.7 F) 10/04/2024 8:04 AM BUSINESS ANALYSIS PROFESSIONAL Respiratory Rate 12 10/04/2024 11:0 0 AM BUSINESS ANALYSIS PROFESSIONAL Oxygen Saturation 98% 10/04/2024 11: 00 AM BUSINESS ANALYSIS PROFESSIONAL Inhaled Oxygen Concentration - - Weight 114.4 kg (252 lb 1.6 oz) 10/04/2024 8:05 AM BUSINESS ANALYSIS PROFESSIONAL Height 182.9 cm (6') 09/13/2024 9:03 AM BUSINESS ANALYSIS PROFESSIONAL Body Mass Index 34.19 09/13/2024 9:03 AM BUSINESS ANALYSIS PROFESSIONAL Plan of Treatment Not on file Medical Devices Implanted Type Area Human Resource Intern Device Identifier Shelf Expiration Date Model / Serial / Lot Device Cardiac Biomonitor Implantable Sterile Latex Free - [id number] Implanted:Qty: 1 on 08/07/2017 by Yessica Rogers MD at [facility] [employer] 09/02/2017 [id number] / / Procedures Procedure Name Priority Date/Time Associated Diagnosis Comments LOOP RECORDER REMOVAL Routine 10/04/2024 9:57 AM BUSINESS ANALYSIS PROFESSIONAL Encounter for interrogation of cardiac recorder STRESS TEST FOR DUAL READ Schedule Routine, Read Routine (OP Routine) 09/27/2024 10:26 AM BUSINESS ANALYSIS PROFESSIONAL Coronary artery disease involving [place] coronary artery of [place] heart without angina pectoris NM MPI SPECT (REST AND/OR STRESS) MULTIPLE STUDIES Schedule Routine, Read Routine (OP Routine) 09/27/2024 10:26 AM BUSINESS ANALYSIS PROFESSIONAL Coronary artery disease involving [place] coronary artery of [place] heart without angina pectoris EGFR Routine 09/27/2024 9:55 AM BUSINESS ANALYSIS PROFESSIONAL Encounter for interrogation of cardiac recorder DIFFERENTIAL AUTO Routine 09/27/2024 9:5 5 AM BUSINESS ANALYSIS PROFESSIONAL Encounter for interrogation of cardiac recorder PROTIME-INR Routine 09/27/2024 9:55 AM BUSINESS ANALYSIS PROFESSIONAL Encounter for interrogation of cardiac recorder BASIC METABOLIC PANEL Routine 09/27/2024 9:55 AM BUSINESS ANALYSIS PROFESSIONAL Encounter for interrogation of cardiac recorder CBC WITH AUTO DIFFERENTIAL Routine 09/27/2024 9:55 AM BUSINESS ANALYSIS PROFESSIONAL Encounter for interrogation of cardiac recorder ECG 12-LEAD Routine 09/27/2024 8:48 AM BUSINESS ANALYSIS PROFESSIONAL Encounter for interrogation of cardiac recorder from Last 3 Months Results * LOOP RECORDER REMOVAL (10/04/2024 9:57 AM BUSINESS ANALYSIS PROFESSIONAL) Anatomical Region Laterality Modality X-Ray Angiograph y 10/04/2024 Narrative 10/07/2024 10:40 AM BUSINESS ANALYSIS PROFESSIONAL [employer] Job ID: [id number] [employer]Track Document ID: [id number] Dictated date/time: [id number] NAME OF CARDIAC PROCEDURE Removal of loop recorder. PROCEDURE The patient was brought down to the [facility] where a time-out was done just prior [...] office next week. Job ID/Internal Job ID: [id number] us Yessica Rogers MD CV ELECTROPHYSIOLOGY PROCS Fi nal Result * NM MPI SPECT (Rest and/or Stress) Multiple Studies (09/27/2024 10:26 AM BUSINESS ANALYSIS PROFESSIONAL) Anatomical Region Laterality Modality Body N/A Nuclear Medicine 09/27/2024 7:47 AM BUSINESS ANALYSIS PROFESSIONAL Narrative 09/27/2024 11:47 AM BUSINESS ANALYSIS PROFESSIONAL [address] [address] MPI Report Patient Name: JOSE MALAVE Nilesh : 1975 Study Date: 09/27/2024 7:47:03 AM Gender: M Tech: Ref Provider: YESSICA ROGERS Height(Cm): BSA: Weight(Kg): Order Provider: YESSICA ROGERS PROCEDURES: Exercise SPECT Report.: Myocardial Perfusion Imaging at rest and post exercise. INDICATIONS: I25.10 Atherosclerotic heart disease of [place] coronary artery without angina pectoris. FINDINGS: Procedure [...] By: Shelby Oconnell MD 09/27/2024 11:00:11 AM BUSINESS ANALYSIS PROFESSIONAL Procedure Note Shelby Oconnell MD - 09/27/[address] [address] MPI Report Patient Name: JOSE MALAVE D : 1975 Study Date: 09/27/2024 7:47:03 AM Gender: M Tech: Ref Provider: YESSICA ROGERS Height(Cm): BSA: Weight(Kg): Order Provider: YESSICA ROGERS PROCEDURES: Exercise SPECT Report.: Myocardial Perfusion Imaging at rest and post exercise. INDICATIONS: I25.10 Atherosclerotic heart disease of [place] coronary artery withoutangina pectoris. FINDINGS: Procedure Data: [...] By: Shelby Oconnell MD 09/27/2024 11:00:11 AM BUSINESS ANALYSIS PROFESSIONAL us Yessica Rogers MD IM NM PROCEDURES Final Resul t * Stress Test for Myocardial Perfusion (09/27/2024 10:26 AM BUSINESS ANALYSIS PROFESSIONAL) Anatomical Region Laterality Modality Nuclear Medicine 09/27/2024 8:30 AM BUSINESS ANALYSIS PROFESSIONAL Narrative 09/27/2024 1:30 PM BUSINESS ANALYSIS PROFESSIONAL [address] [address] MPI ECG Report Patient Name: JOSE MALAVE D : 1975 Study Date: 09/27/2024 8:30:00 AM Gender: M Tech: jose Suárez Provider: YESSICA ROGERS Height(Cm): 183 BSA: 3.57 Weight(Kg): 251 Heart Rate: 145 Order Provider: YESSICA ROGERS PROCEDURES: Exercise SPECT Report.: Myocardial Perfusion Imaging at rest and post exercise. INDICATIONS: I25.10 Atherosclerotic heart disease of [place] coronary artery without angina pectoris. FINDINGS: Procedure Data: Exercise Time: 10:00 Resting HR 79 bpm Peak HR: 157 bpm Predicted Maximal HR 170 bpm Target HR: 145 bpm Percent Max Predicted HR Achieved: 92 % METS achieved: 10.3 Rate-Pressure Product: 87384 BPM*mmHg Medications: Medications None, aspirin, bumex, capoten, [...] By: Shelby Oconnell MD 09/27/2024 12:54:58 PM BUSINESS ANALYSIS PROFESSIONAL Procedure Note Shelby Oconnell MD - 09/27/[address] [address] MPI ECG Report Patient Name: JOSE MALAVE D : 1975 Study Date: 09/27/2024 8:30:00 AM Gender: M Tech: jose Suárez Provider: YESSICA ROGERS Height(Cm): 183 BSA: 3.57 Weight(Kg): 251 Heart Rate: 145 Order Provider: YESSICA ROGERS PROCEDURES: Exercise SPECT Report.: Myocardial Perfusion Imaging at rest and post exercise. INDICATIONS: I25.10 Atherosclerotic heart disease of [place] coronary artery withoutangina pectoris. FINDINGS: Procedure Data: Exercise Time: 10:00 Resting HR 79 bpm Peak HR: 157 bpm Predicted Maximal HR 170 bpm Target HR: 145 bpm Percent Max Predicted HR Achieved: 92 % METS achieved: 10.3 Rate-Pressure Product: 67586 BPM*mmHg Medications: Medications None, aspirin, bumex, capoten, [...] By: Shelby Oconnell MD 09/27/2024 12:54:58 PM BUSINESS ANALYSIS PROFESSIONAL us Yessica Rogers MD CV STRESS PROCEDURES Final Re sult * eGFR (09/27/2024 9:55 AM BUSINESS ANALYSIS PROFESSIONAL) eGFR 80 >=60 mL/min/1. 73 m2 Comment: [...] last reviewed 2021. Blood 09/27/2024 9:55 AM BUSINESS ANALYSIS PROFESSIONAL 09/27/2024 10:44 AM BUSINESS ANALYSIS PROFESSIONAL us Yessica Rogers MD LAB BLOOD ORDERABLES Final Re sult [facility] ([place]) [facility] Department [place] [address] * Differential, auto (09/27/2024 9:55 AM BUSINESS ANALYSIS PROFESSIONAL) Neutrophil abs 3.3 1.5 - 6.5 K/cumm [...] revised on 2017. Blood 09/27/2024 9:55 AM BUSINESS ANALYSIS PROFESSIONAL 09/27/2024 10:44 AM BUSINESS ANALYSIS PROFESSIONAL us Yessica Rogers MD LAB BLOOD ORDERABLES Final Re sult [facility] ([place]) [address] [facility] Department [place] [address] * CBC with auto differential (09/27/2024 9:55 AM BUSINESS ANALYSIS PROFESSIONAL) WBC 6.9 3.8 - 9.9 K/cumm Hgb [...] [facility] ([place]) Blood 09/27/2024 9:55 AM BUSINESS ANALYSIS PROFESSIONAL 09/27/2024 10:44 AM BUSINESS ANALYSIS PROFESSIONAL Yessica Rogers MD LAB BLOOD ORDERABLES Final Re sult Performing Organization Address [facility] de Phone Number [facility] ([place]) [address] [facility] [employer] [place] [address] * Protime-INR (09/27/2024 9:55 AM BUSINESS ANALYSIS PROFESSIONAL) PT 11.7 9.7 - 13.0 sec [facility] ([place]) INR 1.08 0.90 - 1.20 [facility] ([place]) Comment: Interpretive data Oral anticoagulant therapeutic ranges: Venous thromboembolism prophylaxis or treatment: 2.0-3.0 CARDIOLOGY Standard range: 2.0-3.0 High-intensity range: 2.5-3.5 Refer to indication-specific guidelines for appropriate target ranges for prosthetic heart valve replacement. Current interpretive data was last revised on 2019. Blood 09/27/2024 9:55 AM BUSINESS ANALYSIS PROFESSIONAL 09/27/2024 10:44 AM BUSINESS ANALYSIS PROFESSIONAL Yessica Rogers MD LAB BLOOD ORDERABLES Final Re sult Performing Organization Address City/[facility] Co de Phone Number [facility] ([place]) [facility] [employer] [place] [address] * Basic metabolic panel (09/27/2024 9:55 AM BUSINESS ANALYSIS PROFESSIONAL) Sodium 143 135 - 145 mmol/L Potassium, pl 4.1 3.3 - 4.9 mmol/L [facility] ([place]) Chloride 107 97 - 110 mmol/L [facility] ([place] CO2 27 22 - 32 mmol/L [facility] ([place]) Anion gap 9 2 - 15 mmol/L [facility] ([place]) BUN 10 6 - 25 mg/dL [facility] ([place]) Creatinine 1.12 0.80 - 1.30 mg/dL [facility] ([place]) Glucose 118 70 - 199 [...] [facility] ([place]) Blood 09/27/2024 9:55 AM BUSINESS ANALYSIS PROFESSIONAL 09/27/2024 10:44 AM BUSINESS ANALYSIS PROFESSIONAL us Yessica Rogers MD LAB BLOOD ORDERABLES Final Re sult Performing Organization Address City/[facility] Co de Phone Number [facility] ([place]) [address] [facility] Department [place] [address] * ECG 12 lead (09/27/2024 8:48 AM BUSINESS ANALYSIS PROFESSIONAL) 09/27/2024 8:52 AM BUSINESS ANALYSIS PROFESSIONAL Narrative [facility] - 09/27/2024 9:30 AM BUSINESS ANALYSIS PROFESSIONAL Vent Rate: 57 bpm RR Interval: 1045 msec MD Interval: 155 msec QRS Duration: 101 msec QT Interval: 408 msec QTC Interval: 402 msec P-R-T Naper: 72 - 27 - 52 degrees IMPRESSION: SINUS BRADYCARDIA BORDERLINE ECG NO CHANGE FROM PREVIOUS TRACING NOTED Electronically Signed By: Chidi Sethi MD us Yessica Rogers MD ECG ORDERABLES Final Result Performing Organization Address City/[facility] Co de Phone Number [facility] Health [address] [facility] from Last 3 Months Insurance [facility] Advance Directives For more information, please contact: [phone] * Full Code (Latest Code Status on File) Date Activated Date Inactivated Comments 10/04/2024 9:50 AM 10/04/2024 3:13 PM * Full Code Date Activated Date Inactivated Comments 01/15/2023 11:45 AM 01/20/2023 3:17 PM * Full Code Date Activated Date Inactivated Comments 08/25/2017 1:48 AM 08/25/2017 8:43 PM * Full Code Date Activated Date Inactivated Comments 08/06/2017 2:25 AM 08/07/2017 9:11 PM Care Teams Admitting Office Escort Relationship Specialty Start Date End Date Mitch Liao PA [address] [place] [address] PCP - General Physician Dye Reel Operator 02/26/23 Yessica Rogers MD Registered Nurse Cardiovascular Disease 08/07/17 Varun Alicia DO Consulting Physician Cardiology 08/07/17
--- OUTSIDE RECORDS SUMMARY | 2024-12-04 13:34 | XMS_ITS | CONTINUITY OF CARE DOCUMENT ---
Author Name demianbuck demianbuck Address Unknown Organization [facility] Address [address] [place] [address] Phone [phone] Care Team Providers Care Armature Balancer Name Role Phone Sheridan BRIGHT, Rula Unavailable [phone] YAMILETH BRIGHT, YESSICA Mays Unavailable IVIS BRIGHT, REGLA Esteban Unavailable PROBLEMS Condition Status Date Provider Notes Syncope active Monie Santos RN [employer] active Varun Alicia DO Dizziness active Varun Alicia DO Asthma active Varun Alicia DO ENCOUNTERS Date Type Provider Location Encounter Diag nosis - In-person encounter Office Visit Varun Alicia DO [facility] Office - In-person encounter Office Visit Varun Alicia DO [facility] Office [employer] ILRDizzinessAsthnh VITAL SIGNS Date Observation Value Provider Body [...] 3.5-5.2 7 sodium, serum 143 mmol/L [employer] [phone]/04/2 7 urea nitrogen/creatinin e ratio, serum 12 [...] Estab. 7 platelet count 213 X10E3/UL [employer] [phone]/04/2 7 red blood cell distribution width 13.6 [...] active one tablet three times daily. 3 Vraun Alicia DO #90, 30 days supply, Prescribed [...] Payer name Policy type / Coverage type [place] red green party ID [facility] Commercial insurance [facility] [id number] ADVANCE DIRECTIVES Name Date DISCUSSED - NO [...]
--- OUTSIDE RECORDS SUMMARY | 2024-12-04 13:34 | XMS_ITS | Clinical Summary ---
Author Organization [facility] Address [address] [place] [address] Care Team Providers Care Environmental Services Manager Name Role Phone Yessica Rogers MD Unavailable [phone] Varun Alicia DO Unavailable [phone] Mitch Liao Primary Care Provider Allergies No [...] mg total) by mouth daily Active rizatriptan WATER TREATMENT PLANT ENGINEER (MAXALT-WATER TREATMENT PLANT ENGINEER) 10 mg disintegrating tabletIndications: Migraine Take 1 [...] daily. Assessment & Plan (10/07/2024 8:59 AM MANAGER LVN): We discussed LDL cholesterol goal less than 70 mg/dL. Patient agreeable to getting another fasting lipid/liver panel in about a month. I expect his LDL to be much lower at that time. Assessment & Plan (09/13/2024 9:23 AM MANAGER LVN): Discussed LDL cholesterol goal of less than [...] 6-8 weeks. Coronary artery disease invo lving jena coronary artery of jena heart 01/24/2020 Overview (09/27/2024): Mild by catheterization on 12 January 2014 (RL) with 25% ostial left main stenosis, 25% diffuse proximal RCA stenosis and 25% mid to distal LAD stenosis. Normal Cardiolite on 27 September 2024. LVEF of 63%. Assessment & Plan (09/13/2024 9:21 AM MANAGER LVN): We discussed cardiac catheterization result 10 years [...] soon. Assessment & Plan (08/28/2022 3:03 PM MANAGER LVN): We discussed cardiac catheterization findings from 8 years ago. Patient denies any chest pain or shortness of breath with exertion. No change in medical regimen here. Assessment & Plan (08/22/2021 3:37 PM MANAGER LVN): Patient denies any chest pain or shortness [...] interrogation. Assessment & Plan (09/13/2024 9:21 AM MANAGER LVN): No recent palpitations, dizziness or syncope. loop recorder will be removed soon. Assessment & Plan (08/28/2022 3:03 PM MANAGER LVN): Patient has done quite well. We discussed an EP evaluation to see if he could benefit from an ablation. He is agreeable to see Dr. Pulido at [facility] for a new patient visit. No change in Toprol-XL dose at this time. He never filled his ivabradine prescription. Assessment & Plan (08/22/2021 3:38 PM MANAGER LVN): Multiple episodes of heart rate to the [...] (RL). Assessment & Plan (10/07/2024 8:58 AM MANAGER LVN): No problems since loop recorder removed. Assessment & Plan (09/13/2024 9:20 AM MANAGER LVN): He has not had any syncope for [...] future. Assessment & Plan (08/06/2017 5:30 PM MANAGER LVN): This is a recurrent problem for the patient happening 5th time. Prior workup was negative. Patient had CardioNet monitor for 17 days, did not show any arrhythmias. Dr. lynn is her recommending loop recorder and he spoke to Dr. Drew elizabeth at [facility] for possible EP study. Orthostatic blood pressures are pending. All the workup is still negative, EKG does not show any tachyarrhythmia, Brugada syndrome or WPW syndrome. Telemetry monitoring showing sinus rhythm. Neurology consultation obtained. Recommending EEG and loop recorder. Pain in right hand 08/06/2017 Assessment & Plan (08/06/2017 5:34 PM MANAGER LVN): This is secondary to a fall due to syncope. X-ray of right hand shows old fracture at navicular bone. No new fractures or dislocation. Will continue pain medications. Left shoulder pain 08/06/2017 Assessment & Plan (08/06/2017 5:48 PM MANAGER LVN): This is due to a fall. X-rays show no fracture or dislocation. Will continue pain medication Orthostatic hypotension 08/06/2017 Assessment & Plan (08/06/2017 5:49 PM MANAGER LVN): Continue IV fluid and check orthostatic blood pressures tomorrow. Contusion of left hip Contusion of left shoulder Contusion of right hand Encounters Date Type Department Care Team Description 11/07/2024 11:00 AM CDT Office Visit [facility] at [address] [phone] Susu Anderson NP Incisional infection (Primary Dx) 10/07/2024 8:15 AM MANAGER LVN Office Visit [facility] at [address] [phone] Yessica Rogers MD Elevated LDL cholesterol level (Primary Dx); Syncope and collapse 10/04/2024 9:00 AM MANAGER LVN - 10/04/2024 10:35 AM MANAGER LVN Surgery [facility] Cardiac Catheterization [address] [place] [address] Yessica Rogers MD IMPLANTABLE CARDIAC EVENT MONITOR REMOVAL [id number] 10/04/2024 7:40 AM MANAGER LVN - 10/04/2024 11:07 AM MANAGER LVN Hospital Encounter [facility] Cardiac Catheterization [address] [place] [address] Yessica Rogers MD Encounter for interrogation of cardiac recorder Discharge Disposition: Discharge to home or self care 09/27/2024 10:00 AM MANAGER LVN Lab [address] [address] Encounter for interrogation of cardiac recorder 09/27/2024 8:27 AM MANAGER LVN - 09/27/2024 11:59 PM MANAGER LVN Hospital Encounter [facility] Cardiology [address] [place] [address] Encounter for interrogation of cardiac recorder Discharge Disposition: Discharge to home or self care 09/27/2024 7:41 AM MANAGER LVN - 09/27/2024 11:59 PM MANAGER LVN Hospital Encounter [address] [address] Discharge Disposition: Discharge to home or self care 09/27/2024 7:41 AM MANAGER LVN - 09/27/2024 11:59 PM MANAGER LVN Hospital Encounter [facility] Cardiology [address] [place] [address] Coronary artery disease involving jena coronary artery of jena heart without angina pectoris Discharge Disposition: Discharge to home or self care 09/27/2024 7:40 AM MANAGER LVN - 09/27/2024 11:59 PM MANAGER LVN Hospital Encounter [address] [address] Discharge Disposition: Discharge to home or self care 09/27/2024 7:40 AM MANAGER LVN - 09/27/2024 11:59 PM MANAGER LVN Hospital Encounter [address] [address] Coronary artery disease involving jena coronary artery of jena heart without angina pectoris Discharge Disposition: Discharge to home or self care 09/27/2024 Results [facility]-Up [facility] at [address] [address] Yessica Rogers MD 09/27/2024 Results Follow-Up [facility] at [address] [phone] Yessica Rogers MD 09/13/2024 9:00 AM MANAGER LVN Office Visit [facility] at [address] [address] Yessica Rogers MD Elevated LDL cholesterol level (Primary Dx); Syncope and collapse; Paroxysmal SVT (supraventricular tachycardia) (CMS/HCC) (HCC); Coronary artery disease involving jena coronary artery of jena heart without angina pectoris from Last 3 Months Immunizations Immunization Administration Dates Next Due Influenza, Quadrivalent, Spl it, Preservative Free, Intramuscular 08/07/2017 Surgical History Surgery Date Site/Laterality Comments CARDIAC ELECTROPHYSIOLOGY PROCEDURE 08/03/2017 - 09/02/2017 N/A ARM SURGERY CARDIAC ELECTROPHYSIOLOGY PROCEDURE 10/04/2024 N/A Procedure: IMPLANTABLE CARDIAC EVENT MONITOR REMOVAL [id number]; Surgeon: Yessica Rogers MD; Location: [facility] CARDIAC FORENSIC EXAMINER; Service: Cardiovascular; Laterality: N/A; Pt is requesting [...] often do you attend chur ch or zoroastrianism services? Never 01/16/2023 Do you belong to any clubs o r organizations such as nondenominational groups, unions, fraternal or athletic groups, or [...] to sleep or slept in a senior living (including now)? No 01/16/2023 Personal Safety Answer [...] on file Legal Sex Male 1:47 AM MANAGER LVN Gender Identity Male 08/20/2021 9:51 AM MANAGER LVN Sexual Orientation Straight 08/20/2021 9: 51 AM MANAGER LVN Obstetrics History Last Filed Vital Signs Vital Sign Reading Time Taken Comments Blood Pressure 115/79 10/04/2024 11:00 AM MANAGER LVN Pulse 55 10/04/2024 11:00 AM MANAGER LVN Temperature 36.5 C (97.7 F) 10/04/2024 8:04 AM MANAGER LVN Respiratory Rate 12 10/04/2024 11:0 0 AM MANAGER LVN Oxygen Saturation 98% 10/04/2024 11: 00 AM MANAGER LVN Inhaled Oxygen Concentration - - Weight 114.4 kg (252 lb 1.6 oz) 10/04/2024 8:05 AM MANAGER LVN Height 182.9 cm (6') 09/13/2024 9:03 AM MANAGER LVN Body Mass Index 34.19 09/13/2024 9:03 AM MANAGER LVN Plan of Treatment Health Maintenance Due Date [...] , 08/07/2017 Medical Devices Implanted Type Area Chip Separator Device Identifier Shelf Expiration Date Model / Serial / Lot Device Cardiac Biomonitor Implantable Sterile Latex Free - [id number] Implanted:Qty: 1 on 08/07/2017 by Yessica Rogers MD at [facility] Data Maid 09/02/2017 [id number] / / Procedures Procedure Name Priority Date/Time Associated Diagnosis Comments LOOP RECORDER REMOVAL Routine 10/04/2024 9:57 AM MANAGER LVN Encounter for interrogation of cardiac recorder STRESS TEST FOR DUAL READ Schedule Routine, Read Routine (OP Routine) 09/27/2024 10:26 AM MANAGER LVN Coronary artery disease involving jena coronary artery of jena heart without angina pectoris NM MPI SPECT (REST AND/OR STRESS) MULTIPLE STUDIES Schedule Routine, Read Routine (OP Routine) 09/27/2024 10:26 AM MANAGER LVN Coronary artery disease involving jena coronary artery of jena heart without angina pectoris EGFR Routine 09/27/2024 9:55 AM MANAGER LVN Encounter for interrogation of cardiac recorder DIFFERENTIAL AUTO Routine 09/27/2024 9:5 5 AM MANAGER LVN Encounter for interrogation of cardiac recorder PROTIME-INR Routine 09/27/2024 9:55 AM MANAGER LVN Encounter for interrogation of cardiac recorder BASIC METABOLIC PANEL Routine 09/27/2024 9:55 AM MANAGER LVN Encounter for interrogation of cardiac recorder CBC WITH AUTO DIFFERENTIAL Routine 09/27/2024 9:55 AM MANAGER LVN Encounter for interrogation of cardiac recorder ECG 12-LEAD Routine 09/27/2024 8:48 AM MANAGER LVN Encounter for interrogation of cardiac recorder from Last 3 Months Results * LOOP RECORDER REMOVAL (10/04/2024 9:57 AM MANAGER LVN) Anatomical Region Laterality Modality X-Ray Angiograph y 10/04/2024 Narrative 10/07/2024 10:40 AM MANAGER LVN [employer] Job ID: [id number] [employer] Document ID: [id number] Dictated date/time: [id number] NAME OF CARDIAC PROCEDURE Removal of loop recorder. PROCEDURE The patient was brought down to the label press operator where a time-out was done just prior [...] office next week. Job ID/Internal Job ID: [id number] us Yessica Rogers MD CV ELECTROPHYSIOLOGY PROCS Fi nal Result * NM MPI SPECT (Rest and/or Stress) Multiple Studies (09/27/2024 10:26 AM MANAGER LVN) Anatomical Region Laterality Modality Body N/A Nuclear Medicine 09/27/2024 7:47 AM MANAGER LVN Narrative 09/27/2024 11:47 AM MANAGER LVN [address] [place] [address] MPI Report Patient Name: JOSE MALAVE D : 1975 Study Date: 09/27/2024 7:47:03 AM Gender: M Tech: Ref Provider: YESSICA ROGERS Height(Cm): BSA: Weight(Kg): Order Provider: YESSICA ROGERS PROCEDURES: Exercise SPECT Report.: Myocardial Perfusion Imaging at rest and post exercise. INDICATIONS: I25.10 Atherosclerotic heart disease of jena coronary artery without angina pectoris. FINDINGS: Procedure [...] By: Shelby Oconnell MD 09/27/2024 11:00:11 AM MANAGER LVN Procedure Note Shelby Oconnell MD - 09/27/[address] [place] [address] MPI Report Patient Name: JOSE MALAVE Nilesh : 1975 Study Date: 09/27/2024 7:47:03 AM Gender: M Tech: Ref Provider: YESSICA ROGERS Height(Cm): BSA: Weight(Kg): Order Provider: YESSICA ROGERS PROCEDURES: Exercise SPECT Report.: Myocardial Perfusion Imaging at rest and post exercise. INDICATIONS: I25.10 Atherosclerotic heart disease of jena coronary artery withoutangina pectoris. FINDINGS: Procedure Data: [...] By: Shelby Oconnell MD 09/27/2024 11:00:11 AM MANAGER LVN Yessica Rogers MD [facility] PROCEDURES Final Resul t * Stress Test for Myocardial Perfusion (09/27/2024 10:26 AM MANAGER LVN) Anatomical Region Laterality Modality Nuclear Medicine 09/27/2024 8:30 AM MANAGER LVN Narrative 09/27/2024 1:30 PM MANAGER LVN [address] [address] MPI ECG Report Patient Name: JOSE MALAVENilesh : 1975 Study Date: 09/27/2024 8:30:00 AM Gender: M Tech: jose dailey Ref Provider: YESSICA ROGERS Height(Cm): 183 BSA: 3.57 Weight(Kg): 251 Heart Rate: 145 Order Provider: YESSICA ROGERS PROCEDURES: Exercise SPECT Report.: Myocardial Perfusion Imaging at rest and post exercise. INDICATIONS: I25.10 Atherosclerotic heart disease of jena coronary artery without angina pectoris. FINDINGS: Procedure Data: Exercise Time: 10:00 Resting HR 79 bpm Peak HR: 157 bpm Predicted Maximal HR 170 bpm Target HR: 145 bpm Percent Max Predicted HR Achieved: 92 % METS achieved: 10.3 Rate-Pressure Product: 29334 BPM*mmHg Medications: Medications None, aspirin, bumex, capoten, [...] By: Shelby Oconnell MD 09/27/2024 12:54:58 PM MANAGER LVN Procedure Note Shelby Oconnell MD - 09/27/[address] [address] MPI ECG Report Patient Name: JOSE MALAVE D : 1975 Study Date: 09/27/2024 8:30:00 AM Gender: M Tech: jose dailey Jose Armando Provider: YESSICA ROGERS Height(Cm): 183 BSA: 3.57 Weight(Kg): 251 Heart Rate: 145 Order Provider: YESSICA ROGERS PROCEDURES: Exercise SPECT Report.: Myocardial Perfusion Imaging at rest and post exercise. INDICATIONS: I25.10 Atherosclerotic heart disease of jena coronary artery withoutangina pectoris. FINDINGS: Procedure Data: Exercise Time: 10:00 Resting HR 79 bpm Peak HR: 157 bpm Predicted Maximal HR 170 bpm Target HR: 145 bpm Percent Max Predicted HR Achieved: 92 % METS achieved: 10.3 Rate-Pressure Product: 90072 BPM*mmHg Medications: Medications None, aspirin, bumex, capoten, [...] By: Shelby Oconnell MD 09/27/2024 12:54:58 PM MANAGER LVN Yessica Rogers MD CV STRESS PROCEDURES Final Re sult * eGFR (09/27/2024 9:55 AM MANAGER LVN) eGFR 80 >=60 mL/min/1. 73 m2 Comment: [...] last reviewed 2021. Blood 09/27/2024 9:55 AM MANAGER LVN 09/27/2024 10:44 AM MANAGER LVN Yessica Rogers MD LAB BLOOD ORDERABLES Final Re sult [facility] ([place]) 1 [facility] Department of Laboratories [place], [place] [id number] * Differential, auto (09/27/2024 9:55 AM MANAGER LVN) Neutrophil abs 3.3 1.5 - 6.5 K/cumm [...] revised on 2017. Blood 09/27/2024 9:55 AM MANAGER LVN 09/27/2024 10:44 AM MANAGER LVN us Yessica Rogers MD LAB BLOOD ORDERABLES Final Re sult [facility] ([place]) 1 [facility] Department [place] [address] * CBC with auto differential (09/27/2024 9:55 AM MANAGER LVN) WBC 6.9 3.8 - 9.9 K/cumm Hgb [...] NRBC abs 0.00 0.00 - 0.01 K/cumm [facility] Blood 09/27/2024 9:5 5 AM MANAGER LVN 09/27/2024 10:44 AM MANAGER LVN us Yessica Rogers MD LAB BLOOD ORDERABLES Final Re sult [facility] ([place]) 1 [facility] [place] [address] * Protime-INR (09/27/2024 9:55 AM MANAGER LVN) PT 11.7 9.7 - 13.0 sec [facility] ([place]) INR 1.08 0.90 - 1.20 [facility] ([place] Comment: Interpretive data Oral anticoagulant therapeutic ranges: Venous thromboembolism prophylaxis or treatment: 2.0-3.0 CARDIOLOGY Standard range: 2.0-3.0 High-intensity range: 2.5-3.5 Refer to indication-specific guidelines for appropriate target ranges for prosthetic heart valve replacement. Current interpretive data was last revised on 2019. Blood 09/27/2024 9:55 AM MANAGER LVN 09/27/2024 10:44 AM MANAGER LVN us Yessica Rogers MD LAB BLOOD ORDERABLES Final Re sult [facility] ([place]) 1 [facility] Department [place] [address] * Basic metabolic panel (09/27/2024 9:55 AM MANAGER LVN) Sodium 143 135 - 145 mmol/L Potassium, [...] [facility] ([place]) Blood 09/27/2024 9:55 AM MANAGER LVN 09/27/2024 10:44 AM MANAGER LVN us Yessica Rogers MD LAB BLOOD ORDERABLES Final Re sult [facility] ([place]) 1 [facility] Department [place] [address] * ECG 12 lead (09/27/2024 8:48 AM MANAGER LVN) 09/27/2024 8:52 AM MANAGER LVN Narrative [facility] - 09/27/2024 9:30 AM MANAGER LVN Vent Rate: 57 bpm RR Interval: 1045 msec [place] Interval: 155 msec QRS Duration: 101 msec QT Interval: 408 msec QTC Interval: 402 msec P-R-T [place]: 72 - 27 - 52 degrees IMPRESSION: SINUS BRADYCARDIA BORDERLINE ECG NO CHANGE FROM PREVIOUS TRACING NOTED Electronically Signed By: Chidi Sethi MD us Yessica Rogers MD ECG ORDERABLES Final Result [facility] from Last 3 Months Insurance [facility] Advance Directives For more information, please contact: [phone] * Full Code (Latest Code Status on File) Date Activated Date Inactivated Comments 10/04/2024 9:50 AM 10/04/2024 3:13 PM * Full Code Date Activated Date Inactivated Comments 01/15/2023 11:45 AM 01/20/2023 3:17 PM * Full Code Date Activated Date Inactivated Comments 08/25/2017 1:48 AM 08/25/2017 8:43 PM * Full Code Date Activated Date Inactivated Comments 08/06/2017 2:25 AM 08/07/2017 9:11 PM Care Teams Environmental Services Manager Relationship Specialty Start Date End Date Mitch Liao PA [address] [place] [id number] PCP - General Physician Cloth Beamer 02/26/23 Yessica Rogers MD Registered Nurse Cardiovascular Disease 08/07/17 Varun Alicia DO Consulting Physician Cardiology 08/07/17
--- OUTSIDE RECORDS SUMMARY | 2024-12-04 13:34 | XMS_ITS | Clinical Summary ---
Author Organization [facility] Address [address] [place] [address] Care Team Providers Care Transport Corps Officer Name Role Phone Master Marcus MD Primary Care Provider [phone] Allergies No known active allergies Medications metoprolol [...] Department Care Team Description 09/14/2024 6:39 AM NUCLEAR POWER REACTOR OPERATOR - 09/14/2024 11:[address] [facility] Hospital Encounter [address] [place] [address] Master Marcus MD Discharge Disposition: Home or Self Care (Routine Discharge) 09/14/2024 Travel from Last 3 Months Social History Tobacco Use Types Packs/Day Years Used Date Smoking Tobacco: Never Smokeless Tobacco: Never Alcohol Use Standard Drinks/Week Comments Not Currently 0 (1 standard drink = 0.6 oz pur e alcohol) Sex and Gender Information Value Date Recorded Sex Assigned at Male 08/19/2024 8:35 AM NUCLEAR POWER REACTOR OPERATOR Legal Sex Male 7:02 PM CDT Gender [...] BONES WO CON Routine 09/14/2024 6:52 AM NUCLEAR POWER REACTOR OPERATOR Lesion of mandible from Last 3 Months Results * CT FACIAL BONES WO CON (09/14/2024 6:52 AM NUCLEAR POWER REACTOR OPERATOR) Anatomical Region Laterality Modality Facial Computed Tomogra phy 09/14/2024 8:06 AM NUCLEAR POWER REACTOR OPERATOR Impressions 09/15/2024 3:40 PM NUCLEAR POWER REACTOR OPERATOR IMPRESSION: 1. No right mandibular osseous lesion [...] 09/14/2024 8:06 AM Narrative 09/15/2024 3:40 PM NUCLEAR POWER REACTOR OPERATOR [place] [id number] [facility] [place] [address] EXAMINATION: CT FACIAL BONES WO CON DATE: [...] Procedure Note Dmitry Latham MD - 09/15/2024 [place] [id number] [facility] [address] [place] [address] EXAMINATION: CT FACIAL BONES WO CON DATE: [...] Last 3 Months Insurance R Care Teams Transport Corps Officer Relationship Specialty Start Date End Date Master Marcus MD [address] [place] [address] PCP - General FAMILY PRACTICE 07/31/21
[2024-12-04 14:13] LABS: Basophils Absolute Auto 0.02 K/mm3 (0.00-0.10); Basophils Percent Auto 0.3 % (0.0-1.0); Eosinophils Absolute Auto 0.02 K/mm3 (0.02-0.50); Eosinophils Percent Auto 0.3 % (1.0-6.0); Hematocrit 42.9 % (40.0-54.0); Hemoglobin 14.3 g/dL (14.0-18.0); Immature Granulocyte Absolute 0.01 K/mm3 (0.00-0.00); Immature Granulocyte Percent A 0.2 % (0.0-0.0); Immature Platelet Fraction Pct 2.4 % (1.0-7.0); Lymphocytes Absolute Auto 1.37 K/mm3 (1.10-4.50); Lymphocytes Percent Auto 21.7 % (18.0-42.0); Mean Corpuscular HGB Conc 33.3 g/dL (32-36); Mean Corpuscular Hemoglobin 29.4 pg (27.0-31.0); Mean Corpuscular Volume 88.3 fL (78.0-102.0); Mean Platelet Volume 9.8 fl (8.7-11.0); Monocytes Percent Auto 7.9 % (2.0-11.0); Neutrophils Percent Auto 69.6 % (50.0-70.0); Platelet Count Result 141 K/mm3 (150-420); Red Blood Count 4.86 M/mm3 (4.70-6.10); Red Cell Distribution Width 11.9 % (11.6-14.4); White Blood Count 6.3 K/mm3 (4.8-10.8)
[2024-12-04 14:29] LABS: Alanine Aminotransferase 32 U/L (16-63); Albumin Level 3.1 g/dL (3.4-5.0); Alkaline Phosphatase 65 U/L (46-116); Anion Gap 9 mmol/L (4-12); Aspartate Amino Transferase 26 U/L (15-37); Blood Urea Nitrogen 11 mg/dL (7-18); Calcium 7.7 mg/dL (8.5-10.1); Carbon Dioxide 26 mmol/L (21-32); Chloride 104 mmol/L (98-108); Estimated CRCL calculation 74 ml/min; Estimated Glomerular Filt Rate 54; Glucose 100 mg/dL (70-99); Lipase 26 U/L (16-77); Magnesium 1.6 mg/dL (1.8-2.4); Osmolality Calculated 287 mOsm/kg (285-295); Potassium 3.4 mmol/L (3.5-5.1); Sodium 139 mmol/L (136-145); Total Protein 6.5 g/dL (6.4-8.2)
[2024-12-04] MEDS: MAGNESIUM OXIDE 400 MG TABLET 800 MG PO (15:00)
[2024-12-04] MEDS: POTASSIUM CHLORIDE 20 MEQ ER TABLET PO (15:00)
== END 2024-12-04 15:34 | disposition home or self-care (01) ==
PROVIDERS: Emergency Provider Emergency Medicine; PCP Physician Assistant
DX: A09 Infectious gastroenteritis and colitis, unspecified (principal); E86.0 Dehydration; Z79.899 Other long term (current) drug therapy
CPT/HCPCS: 36415; 74176; 80053; 81001; 83605; 83690; 83735; 85025; 85055; 96360; 99284; A9270; J7030